=== PATIENT | male | born 1970 | race Caucasian/White ===

== ENCOUNTER 2021-03-28 09:50 | Outpatient (REF) | payer OTHER, SELFPAY ==
[2021-03-28 10:21] LABS: MANUAL DIFF FLAG NO
[2021-03-28 10:33] LABS: Basophils Percent Auto 0.6 % (0-2); Eosinophils Absolute Auto 0.3 X10*3/uL (0.0-0.4); Eosinophils Percent Auto 4.6 % (0-4); Hemoglobin 15.1 g/dl (14.0-18.0); Imm Gran Abs Auto 0.02 X10*3/uL (0.00-0.03); Imm Gran Pct Auto 0.4 % (0.0-0.4); Lymphocytes Absolute Auto 1.7 X10*3/uL (1.2-4.9); Lymphocytes Percent Auto 31.4 % (20-40); Mean Corpuscular HGB Conc 32.8 g/dl (31.0-36.0); Mean Corpuscular Hemoglobin 30.6 pg (27.0-33.0); Mean Corpuscular Volume 93.3 fL (80-98); Mean Platelet Volume 9.1 fL (9.4-12.4); Monocytes Absolute Auto 0.5 X10*3/uL (0.1-1.2); Monocytes Percent Auto 9.4 % (2-11); Neutrophils Absolute Auto 2.9 X10*3/uL (2.0-8.3); Neutrophils Percent Auto 53.6 % (45-73); Platelet Count 224 X10*3/uL (160-400); Red Blood Count 4.93 X10*6/uL (4.60-5.80); Red Cell Distribution Width 14.2 % (11.0-16.0); White Blood Count 5.4 X10*3/uL (4.8-10.8)
[2021-03-28 10:58] LABS: Alanine Aminotransferase 14 U/L (0-40); Albumin Level 4.3 g/dL (3.5-5.0); Alkaline Phosphatase 45 U/L (39-117); Anion Gap 10 (12-20); Aspartate Amino Transferase 14 U/L (5-37); Bilirubin Total 0.6 mg/dL (0.0-1.0); Blood Urea Nitrogen 12 mg/dL (9-16); Calcium 9.7 mg/dL (8.4-10.2); Carbon Dioxide 27 mmol/L (22-29); Chloride 108 mmol/L (96-108); Cholesterol 178 mg/dL; Estimated Glomerular Filt Rate > 60; Glucose Random 95 mg/dL (60-115); HDL Cholesterol 58 mg/dL; Potassium 4.1 mmol/L (3.3-5.1); Sodium 141 mmol/L (135-145); Total Protein 6.6 g/dL (6.5-8.0)
[2021-03-28 11:11] LABS: LDL Cholesterol Calculated 115 mg/dl; Triglycerides 29 mg/dL
[2021-03-28 11:18] LABS: TSH reflex Free T4 1.44 uIU/mL (0.32-4.0)
== END 2021-03-28 09:51 | disposition home or self-care (01) ==
LOC: HO.LAB 09:50
PROVIDERS: PCP Internal Medicine; Visit Provider Internal Medicine
DX: Z00.00 Encounter for general adult medical examination without abnormal findings (principal); Z13.31 Encounter for screening for depression; F41.8 Other specified anxiety disorders; Z72.0 Tobacco use
CPT/HCPCS: 36415; 80053; 80061; 84443; 85025

== ENCOUNTER 2022-03-16 09:18 | Outpatient (REF) | payer OTHER, SELFPAY ==
[2022-03-16 09:41] LABS: MANUAL DIFF FLAG NO
[2022-03-16 10:32] LABS: Basophils Percent Auto 0.4 % (0-2); Eosinophils Absolute Auto 0.2 X10*3/uL (0.0-0.4); Eosinophils Percent Auto 4.2 % (0-4); Hematocrit 43.6 % (42.0-52.0); Hemoglobin 14.5 g/dl (14.0-18.0); Imm Gran Abs Auto 0.03 X10*3/uL (0.00-0.03); Imm Gran Pct Auto 0.5 % (0.0-0.4); Lymphocytes Absolute Auto 1.6 X10*3/uL (1.2-4.9); Lymphocytes Percent Auto 29.1 % (20-40); Mean Corpuscular HGB Conc 33.3 g/dl (31.0-36.0); Mean Corpuscular Hemoglobin 31.9 pg (27.0-33.0); Mean Platelet Volume 9.1 fL (9.4-12.4); Monocytes Absolute Auto 0.5 X10*3/uL (0.1-1.2); Monocytes Percent Auto 9.9 % (2-11); Neutrophils Absolute Auto 3.1 x10*3/uL (2.0-8.3); Neutrophils Percent Auto 55.9 % (45-73); Platelet Count 219 X10*3/uL (160-400); Red Blood Count 4.54 X10*6/uL (4.60-5.80); Red Cell Distribution Width 13.9 % (11.0-16.0); White Blood Count 5.5 X10*3/uL (4.8-10.8)
[2022-03-16 11:02] LABS: Alanine Aminotransferase 16 U/L (0-40); Albumin Level 4.2 g/dL (3.5-5.0); Alkaline Phosphatase 41 U/L (39-117); Anion Gap 13 (12-20); Aspartate Amino Transferase 14 U/L (5-37); Bilirubin Total 0.6 mg/dL (0.0-1.0); Blood Urea Nitrogen 13 mg/dL (9-16); Carbon Dioxide 25 mmol/L (22-29); Chloride 107 mmol/L (96-108); Cholesterol 169 mg/dL; Estimated Glomerular Filt Rate > 60; Glucose Random 85 mg/dL (60-115); HDL Cholesterol 65 mg/dL; LDL Cholesterol Calculated 99 mg/dl; Potassium 4.1 mmol/L (3.3-5.1); Sodium 141 mmol/L (135-145); Total Protein 6.4 g/dL (6.5-8.0); Triglycerides 26 mg/dL
== END 2022-03-16 09:19 | disposition home or self-care (01) ==
LOC: HO.LAB 09:18
PROVIDERS: PCP Internal Medicine; Visit Provider Internal Medicine
DX: Z00.00 Encounter for general adult medical examination without abnormal findings (principal); Z12.5 Encounter for screening for malignant neoplasm of prostate; F41.8 Other specified anxiety disorders; K59.00 Constipation, unspecified; F17.200 Nicotine dependence, unspecified, uncomplicated
CPT/HCPCS: 36415; 80053; 80061; 84153; 85025

== ENCOUNTER 2023-04-02 10:21 | Outpatient (REF) | payer OTHER, SELFPAY ==
[2023-04-02 10:43] LABS: MANUAL DIFF FLAG NO
[2023-04-02 11:52] LABS: Basophils Percent Auto 0.7 % (0-2); Eosinophils Absolute Auto 0.2 X10*3/uL (0.0-0.4); Eosinophils Percent Auto 3.3 % (0-4); Hematocrit 45.9 % (42.0-52.0); Hemoglobin 15.2 g/dl (14.0-18.0); Imm Gran Abs Auto 0.05 X10*3/uL (0.00-0.03); Imm Gran Pct Auto 0.9 % (0.0-0.4); Lymphocytes Absolute Auto 1.4 X10*3/uL (1.2-4.9); Mean Corpuscular HGB Conc 33.1 g/dl (31.0-36.0); Mean Corpuscular Hemoglobin 31.7 pg (27.0-33.0); Mean Corpuscular Volume 95.8 fL (80.0-98.0); Mean Platelet Volume 9.4 fL (9.4-12.4); Monocytes Absolute Auto 0.4 X10*3/uL (0.1-1.2); Monocytes Percent Auto 7.3 % (2-11); Neutrophils Absolute Auto 3.6 x10*3/uL (2.0-8.3); Neutrophils Percent Auto 62.8 % (45-73); Platelet Count 234 X10*3/uL (160-400); Red Blood Count 4.79 X10*6/uL (4.60-5.80); Red Cell Distribution Width 13.7 % (11.0-16.0); White Blood Count 5.8 X10*3/uL (4.8-10.8)
[2023-04-02 12:43] LABS: Alanine Aminotransferase 17 U/L (0-40); Albumin Level 4.3 g/dL (3.5-5.0); Alkaline Phosphatase 41 U/L (39-117); Anion Gap 9 (12-20); Aspartate Amino Transferase 14 U/L (5-37); Bilirubin Total 0.6 mg/dL (0.0-1.0); Blood Urea Nitrogen 10 mg/dL (9-16); Calcium 9.6 mg/dL (8.4-10.2); Carbon Dioxide 29 mmol/L (22-29); Chloride 108 mmol/L (96-108); Cholesterol 181 mg/dL; Estimated Glomerular Filt Rate > 60; Glucose Random 88 mg/dL (60-115); HDL Cholesterol 61 mg/dL; LDL Cholesterol Calculated 112 mg/dl; Potassium 4.2 mmol/L (3.3-5.1); Sodium 142 mmol/L (135-145); Total Protein 6.7 g/dL (6.5-8.0); Triglycerides 44 mg/dL
[2023-04-02 12:47] LABS: Prostate Specific Antigen Scr 1.61 ng/mL (<0.05-4.0)
[2023-04-02 12:49] LABS: Thyroid Stimulating Hormone 1.27 uIU/mL (0.32-4.0)
== END 2023-04-02 10:22 | disposition home or self-care (01) ==
LOC: HO.LAB 10:21
PROVIDERS: PCP Internal Medicine; Visit Provider Internal Medicine
DX: Z00.01 Encounter for general adult medical examination with abnormal findings (principal); Z12.5 Encounter for screening for malignant neoplasm of prostate; R53.83 Other fatigue; R35.1 Nocturia; M54.50 Low back pain, unspecified; I10 Essential (primary) hypertension; F17.200 Nicotine dependence, unspecified, uncomplicated
CPT/HCPCS: 36415; 80053; 80061; 84153; 84443; 85025

== ENCOUNTER 2024-04-21 10:15 | Outpatient (REF) | payer OTHER, SELFPAY ==
[2024-04-21 10:28] LABS: MANUAL DIFF FLAG NO
[2024-04-21 11:09] LABS: Basophils Percent Auto 0.4 % (0-2); Eosinophils Absolute Auto 0.2 X10*3/uL (0.0-0.4); Eosinophils Percent Auto 3.6 % (0-4); Hematocrit 48.8 % (42.0-52.0); Hemoglobin 16.2 g/dl (14.0-18.0); Imm Gran Abs Auto 0.05 X10*3/uL (0.00-0.03); Imm Gran Pct Auto 0.9 % (0.0-0.4); Lymphocytes Absolute Auto 1.5 X10*3/uL (1.2-4.9); Lymphocytes Percent Auto 27.8 % (20-40); Mean Corpuscular HGB Conc 33.2 g/dl (31.0-36.0); Mean Corpuscular Hemoglobin 30.7 pg (27.0-33.0); Mean Corpuscular Volume 92.6 fL (80.0-98.0); Monocytes Absolute Auto 0.6 X10*3/uL (0.1-1.2); Monocytes Percent Auto 10.3 % (2-11); Neutrophils Absolute Auto 3.2 x10*3/uL (2.0-8.3); Platelet Count 251 X10*3/uL (160-400); Red Blood Count 5.27 X10*6/uL (4.60-5.80); Red Cell Distribution Width 14.1 % (11.0-16.0); White Blood Count 5.5 X10*3/uL (4.8-10.8)
[2024-04-21 11:52] LABS: Alanine Aminotransferase 20 U/L (0-40); Albumin Level 4.5 g/dL (3.5-5.0); Alkaline Phosphatase 49 U/L (39-117); Anion Gap 12 (12-20); Aspartate Amino Transferase 16 U/L (5-37); Bilirubin Total 0.4 mg/dL (0.0-1.0); Blood Urea Nitrogen 14 mg/dL (9-16); Calcium 9.8 mg/dL (8.4-10.2); Carbon Dioxide 26 mmol/L (22-29); Chloride 109 mmol/L (96-108); Cholesterol 225 mg/dL (<200); Estimated Glomerular Filt Rate > 60; Glucose Random 92 mg/dL (60-115); HDL Cholesterol 64 mg/dL (>40); LDL Cholesterol Calculated 153 mg/dL (<100); Sodium 143 mmol/L (135-145); Total Protein 7.1 g/dL (6.5-8.0); Triglycerides 43 mg/dL (<150)
[2024-04-21 12:11] LABS: Prostate Specific Antigen Scr 1.99 ng/mL (<0.05-4.0)
== END 2024-04-21 10:16 | disposition home or self-care (01) ==
LOC: HO.LAB 10:15
PROVIDERS: PCP Internal Medicine; Visit Provider Internal Medicine
DX: Z00.00 Encounter for general adult medical examination without abnormal findings (principal); F41.8 Other specified anxiety disorders; I83.813 Varicose veins of bilateral lower extremities with pain; N40.0 Benign prostatic hyperplasia without lower urinary tract symptoms; Z72.0 Tobacco use
CPT/HCPCS: 36415; 80053; 80061; 84153; 85025

== ENCOUNTER 2024-07-03 09:21 | Outpatient (AMB) | payer OTHER, SELFPAY ==
--- NOTE | 2024-07-03 09:24 | MHC.OFFVIS ---
Intake Visit Reasons: Routine - Referral from Intake Note: New Patient presents for VV with pain. Patient stands over 8 hours a day at his job. Patient has swelling and cramping as well . Accompanied by: Self / Same As Patient Allergies shellfish derived [SHELLFISH DERIVED] Allergy (Severe, Verified 07/03/24 09:28) THROAT CLOSES, EYES SHUT animal dander Allergy (Unknown, Verified 07/03/24 09:) NASAL CONGESTION mold Allergy (Unknown, Verified 07/03/24:) CONGESTION pollen extracts [POLLEN] Allergy (Unknown, Verified 07/03/24 09:) NASAL CONGESTION ENVIROMENTAL Allergy (Unknown, Uncoded 05/27/20 18:55) NASAL CONGESTION HPI HPI Routine - Referral from : Details: Pleasant 54-year-old gentleman patient presents for painful varicose veins. Complaints include pain over varicosities, swelling of lower extremities, cramping, fatigue, and heaviness of the lower extremities. It has been affecting there daily activities including walking and working in [employer]. It is noted more so in right leg. Patient denies any previous venous surgery or injections. Patient denies any history of DVT/ PE. Patient denies any history of phlebitis. Trial of compression includes - [id number] They now present for vascular evaluation regarding their varicose veins. [facility] Medical History Personal history of nicotine dependence Hyperplastic colon polyp (~2019) Surgical History History of right inguinal hernia repair History of colonoscopy Review of Systems Const Reports as per HPI ENT Reports no additional complaints Card Denies chest pain, Denies chest pain at rest and Denies chest pain with activity Resp Denies chest congestion and Denies cough GI Reports no additional complaints Musc Details: pain over varicosities, aching of lower extremities, swelling, cramping, heaviness and tiredness, itching Denies abnormal gait Skin/Breast Reports pruritus and Denies wounds Neuro Reports no additional complaints and Denies abnormal gait Psych Denies no additional complaints Physical Exam Const General: cooperative, healthy appearing and comfortable Orientation/consciousness: oriented to person, oriented to place and oriented to time Neck Carotids: no bruits Chest Chest palpation & inspection: normal inspection of the chest and normal palpation of entire chest wall Resp Effort & Inspection: normal respiratory effort and able to speak in complete sentences Cardio Rate: regular rate Heart sounds: S1 normal heart sound present and S2 normal heart sound present Peripheral pulses: Peripheral pulses 2+ throughout GI Inspection: Yes normal to inspection Skin Other: +2 edema, large rope-like varicosities greater than 4 mm bilateral calf CEAP Classification C4 - skin color changes Ep - Etiology Primary As - superficial veins P - reflux General skin exam: dry skin Neuro General: oriented to person, oriented to place and oriented to time Extrem Right lower extremity: full ROM, normal capillary refill and edema Left lower extremity: full ROM, normal capillary refill and edema Psych Mental Status: mental status grossly normal Assessment & Plan Assessment & Plan (1) Varicose veins of right lower extremity with inflammation: Code(s): I83.11 - Varicose veins of right lower extremity with inflammation Category: Medical Plan: In short, the patient has evidence of venous insufficiency. I have discussed the pathophysiology with the patient. In addition I have provided informational material regarding venous disease to the patient. We have discussed conservative measures including compression, elevation, and exercise. I have also provided a handout regarding appropriate use of compression stockings and where to purchase good compression stockings as well. I have taken the liberty of ordering venous insufficiency testing with the patient. They will follow up with me after testing. The patient had an opportunity to ask questions regarding the treatment plan. All questions were answered. Imaging studies, laboratory studies and physical exam results were discussed and reviewed in detail. No major barriers to understanding were identified. The patient expressed understanding and agreement with the above treatment plan. The patient is aware they should contact our office by phone for worsening of the current condition or the appearance of new symptoms. Thank you for allowing me to participate in the vascular care of this patient. If you have any questions or concerns regarding the treatment for the above condition please do not hesitate to contact me. The office telephone contact is [phone]. This note is constructed using voice recognition software. While every effort has been made to ensure accuracy, community youth secretary errors may have been included. Thank you for allowing me to participate in the care of your patient. Yours sincerely, Yrn Melendez MD, FACS, R.P.V.I. Orders: Orders US venous duplex LE BI 1 Week I83.11 - Varicose veins of right lower extremity with inflammation Coding Level of Care Code New Pt Level 4 (96703) Diagnoses Varicose veins of right lower extremity with inflammation I83.11
== END 2024-07-03 09:51 | disposition home or self-care (01) ==
PROVIDERS: PCP Internal Medicine; Visit Provider Surgery Vascular Surgery
DX: I83.11 Varicose veins of right lower extremity with inflammation (principal)
CPT/HCPCS: 99204

== ENCOUNTER → 2024-07-03 09:21 | Outpatient (BNVA) | payer OTHER, SELFPAY | PROVIDERS: PCP Internal Medicine; Visit Provider Surgery Vascular Surgery | DX: I83.11 Varicose veins of right lower extremity with inflammation (principal); I83.811 Varicose veins of right lower extremity with pain | CPT/HCPCS: 99202 ==

== ENCOUNTER 2024-07-07 08:45 | Outpatient (REF) | payer OTHER, SELFPAY ==
[2024-07-07 17:15] LABS: Urine Cytology See Pathology rpt
== END 2024-07-07 08:46 | disposition home or self-care (01) ==
LOC: HO.LAB 08:45
PROVIDERS: PCP Internal Medicine; Visit Provider Urology
DX: R35.0 Frequency of micturition (principal); Z87.891 Personal history of nicotine dependence; N40.0 Benign prostatic hyperplasia without lower urinary tract symptoms; Z13.9 Encounter for screening, unspecified
CPT/HCPCS: 81003; 88112; 99202

== ENCOUNTER 2024-07-07 08:45 | Outpatient (AMB) | payer OTHER, SELFPAY ==
--- NOTE | 2024-07-07 08:59 | MHC.OFFVIS ---
Intake Visit Reasons: urinary frequency Intake Note: Patient is present for URINARY FREQUENCY Urology Medication:NONE Antibiotic Allergy:NONE Blood Thinner:NONE Stock Holder Required: No Allergies sertraline Allergy (Severe, Verified 07/07/24 08:59) Unknown shellfish derived [SHELLFISH DERIVED] Allergy (Severe, Verified 07/07/24 08:59) THROAT CLOSES, EYES SHUT animal dander Allergy (Unknown, Verified 07/07/24 08:59) NASAL CONGESTION mold Allergy (Unknown, Verified 07/07/24 08:59) CONGESTION pollen extracts [POLLEN] Allergy (Unknown, Verified 07/07/24 08:59) NASAL CONGESTION ENVIROMENTAL Allergy (Unknown, Uncoded 07/07/24 08:59) NASAL CONGESTION Medication List - Last Reconciled 07/07/24 by Rl Cyr MD buspirone 15 mg PO BID loratadine (Claritin) 10 mg PO DAILY sildenafil 100 mg PO DAILY solifenacin (Vesicare) 10 mg PO DAILY triamcinolone acetonide (Nasacort Allergy) 1 spray intranasal DAILY HPI Comments Details: Jose Carlos is a 54-year-old male who is here for evaluation for lower urinary tract symptoms of urinary frequency. He states that if he is not able to get to the bathroom fast enough he will leak a little bit. Occasional dysuria denies gross hematuria. Comorbidity nicotine dependency. I have advised to limit caffeine intake. Labs reviewed-04/21/2024-PSA 1.99 ng/mL. Discussed further evaluation with renal bladder ultrasound and we will trial VESIcare. [facility] Medical History Personal history of nicotine dependence Hyperplastic colon polyp (~2019) Surgical History History of right inguinal hernia repair History of colonoscopy Review of Systems Const All systems reviewed & are unremarkable except as noted in HPI and below Reports no additional complaints Eyes Reports no additional complaints ENT Reports no additional complaints Card Reports no additional complaints Resp Reports no additional complaints GI Reports no additional complaints Reports as per HPI Musc Reports no additional complaints Skin/Breast Reports system reviewed and no additional complaints, except as documented Neuro Reports no additional complaints Psych Reports no additional complaints Endo Reports no additional complaints Karan/Lymph Reports no additional complaints Aller/Immun Reports no additional complaints Physical Exam Const General: healthy appearing, no acute distress and well developed Orientation/consciousness: patient oriented x3 HEENT Head: Yes normocephalic and Yes atraumatic Eyes Conjunctivae: conjunctivae normal Neck Neck: Yes normal visual inspection Chest Chest palpation & inspection: normal inspection of the chest Resp Effort & Inspection: normal respiratory effort Cardio Rate: regular rate GI Inspection: Yes normal to inspection Neuro General: patient oriented x3 Extrem General: No pedal edema Psych Appearance: grossly normal Affect: normal affect Results AMB Urinalysis, Automated UA Leukoctes 0 Norma/uL Last Edit by ANASTACIA Ca on 07/07/24 09:11 UA Nitrite Negative Last Edit by To Steele CCM on 07/07/24 09:11 UA Urobilinogen 1 mg/dL Last Edit by ANASTACIA Ca on 07/07/24 09:11 UA Protein 15 mg/dL Last Edit by ANASTACIA Ca on 07/07/24 09:11 UA pH 6.0 Last Edit by To Steele CCM on 07/07/24 09:11 UA Blood 0 Renzo/uL Last Edit by To Steele CCM on 07/07/24 09:11 UA Specific [place] 1.020 Last Edit by ANASTACIA Ca on 07/07/24 09:11 UA Ketone Positive Last Edit by To Steele CCM on 07/07/24 09:11 UA Bilirubin 0 mg/dL Last Edit by ANASTACIA Ca on 07/07/24 09:11 UA Glucose 0 mg/dL Last Edit by To Steele CCM on 07/07/24 09:11 Results Reviewed Results Reviewed: Laboratory Last Values Urine pH (Auto) 6.0 07/07/24 09:10 Specific [place] (Auto) 1.020 07/07/24 09:10 Urine Protein (Auto) 15 mg/dL 07/07/24 09:10 Glucose (UA)(Auto) 0 mg/dL 07/07/24 09:10 Urine Ketones (Auto) Positive 07/07/24 09:10 Urine Blood (Auto) 0 Renzo/uL 07/07/24 09:10 Urine Nitrite (Auto) Negative 07/07/24 09:10 Urine Bilirubin (Auto) 0 mg/dL 07/07/24 09:10 Urine Urobilinogen (Auto) 1 mg/dL 07/07/24 09:10 Leukocyte Esterase (Auto) 0 Norma/uL 07/07/24 09:10 Assessment & Plan Assessment & Plan (1) Urinary frequency: Code(s): R35.0 - Frequency of micturition Category: Medical (2) Personal history of nicotine dependence: Comment: (former smoker, onset 20yo, 1ppd, quit __) Code(s): Z87.891 - Personal history of nicotine dependence Category: Medical (3) BPH (benign prostatic hyperplasia): Code(s): N40.0 - Benign prostatic hyperplasia without lower urinary tract symptoms Category: Medical Plan Lower urinary tract symptoms of urinary frequency. Comorbidity nicotine dependency. I have advised to limit caffeine intake. Labs reviewed-04/21/2024-PSA 1.99 ng/mL. Discussed further evaluation with renal bladder ultrasound and we will trial VESIcare. Urine for cytology. Orders: Orders AMB Urinalysis Automated 07/07/24 Z13.9 - Encounter for screening, unspecified US retroperitoneal comp 07/07/24 R35.0 - Frequency of micturition Urine Cytology 07/07/24 R35.0 - Frequency of micturition Medications: New solifenacin (Vesicare) 10 mg PO DAILY 30 tabs 3RF Patient Instructions: The patient had an opportunity to ask questions regarding treatment plan. The patient expressed understanding and agreement with the above treatment plan. The patient is aware they should contact our office by phone for worsening of their current condition or the appearance of new symptoms. Compliance is encouraged with any medications and followup testing that is ordered. It is a privilege to be allowed the opportunity to participate in the urologic care of your patient. If you have any questions or concerns regarding treatment for the above conditions please do not hesitate to contact me. The office telephone contact is [phone]. This note is constructed in part using voice recognition software. While every effort has been made to ensure accuracy fabrication and assembly supervisor errors may have been included. Yours sincerely, Rl Cyr MD Coding Level of Care Code New Pt Level 4 (37492) Diagnoses Urinary frequency R35.0 Personal history of nicotine dependence Z87.891 BPH (benign prostatic hyperplasia) N40.0
== END 2024-07-07 09:54 | disposition home or self-care (01) ==
PROVIDERS: PCP Internal Medicine; Visit Provider Urology
DX: R35.0 Frequency of micturition (principal); Z87.891 Personal history of nicotine dependence; N40.0 Benign prostatic hyperplasia without lower urinary tract symptoms
CPT/HCPCS: 99204

== ENCOUNTER 2024-07-15 08:07 | Outpatient (REF) | payer OTHER, SELFPAY ==
--- NOTE | ~2024-07-15 | US_ITS ---
EXAMINATION: US LOWER EXTREMITY VENOUS (REFLUX EXAM), BILATERAL CLINICAL INDICATION: Chronic venous insufficiency with lower extremity varicose veins and inflammation COMPARISON: None. TECHNIQUE: Color flow triplex imaging and compression Doppler was performed to evaluate both the deep and the superficial systems bilaterally. To evaluate the superficial system, the examination was performed in the upright position. Color-flow Doppler ultrasound and compression ultrasound were utilized. In addition, maneuvers were utilized to demonstrate reflux. FINDINGS: 1. DEEP VENOUS ULTRASOUND OF THE RIGHT LOWER EXTREMITY: Common Femoral Vein: Compressible, normal respiratory variation and augmented flow. Femoral Vein: Compressible, normal color flow and augmentation. Popliteal Vein: Compressible, normal augmentation. Deep Reflux: There is no evidence of reflux in the deep system in either the common femoral vein, superficial femoral or the popliteal vein. There is no evidence of a Bedoya's cyst. 2. SUPERFICIAL ULTRASOUND WITH DOPPLER OF RIGHT LOWER EXTREMITY: GREAT SAPHENOUS VEIN: Saphenofemoral Junction: 0.5 cm; Reflux: 0 ms Proximal Thigh: 0.5 cm; Reflux: 3304 ms Mid Thigh: 0.5 cm; Reflux: 3108 ms Above Knee: 0.5 cm; Reflux: 3192 ms At Knee: 0.5 cm; Reflux: 1204 ms Below Knee: 0.5 cm; Reflux: 2368 ms Mid Calf: 0.3 cm; Reflux: 0 ms Ankle: 0.4 cm; Reflux: 0 ms DUPLICATED MEDIAL GREAT SAPHENOUS VEIN: Diameter: 0.3 cm Reflux: No DUPLICATED LATERAL GREAT SAPHENOUS VEIN: Diameter: None imaged Reflux: NA SMALL SAPHENOUS VEIN: Saphenopopliteal Junction: 0.3 cm; Reflux: 0 ms Mid: 0.4 cm; Reflux: 1436 ms Distal: 0.3 cm; Reflux: 0 ms VEIN OF GIACOMINI: Size: NA Reflux: NA PERFORATORS: Location: Distal calf Size: 0.5 cm Reflux: 1844 ms VARICOSITIES: Location: Posterior distal calf off the small saphenous vein, mid and distal medial calf off the great saphenous vein Size: 0.3 to 0.5 cm Reflux: 2148 ms 3. DEEP VENOUS ULTRASOUND OF THE LEFT LOWER EXTREMITY: Common Femoral Vein: Compressible, normal respiratory variation and augmented flow. Femoral Vein: Compressible, normal color flow and augmentation. Popliteal Vein: Compressible, normal augmentation. Deep Reflux: There is no evidence of reflux in the deep system in either the common femoral vein, superficial femoral or the popliteal vein. There is no evidence of a Bedoya's cyst. 4. SUPERFICIAL ULTRASOUND WITH DOPPLER OF LEFT LOWER EXTREMITY: GREAT SAPHENOUS VEIN: Saphenofemoral Junction: 0.8 cm; Reflux: 0 ms Proximal Thigh: 0.5 cm; Reflux: 1908 ms Mid Thigh: 0.6 cm; Reflux: 2628 ms Above Knee: 1.0 cm; Reflux: 2732 ms At Knee: 0.7 cm; Reflux: 2936 ms Below Knee: 0.6 cm; Reflux: 2820 ms Mid Calf: 0.5 cm; Reflux: 1268 ms Ankle: 0.3 cm; Reflux: 1240 ms DUPLICATED MEDIAL GREAT SAPHENOUS VEIN: Diameter: 0.3 cm Reflux: None DUPLICATED LATERAL GREAT SAPHENOUS VEIN: Diameter: None imaged Reflux: NA SMALL SAPHENOUS VEIN: Saphenopopliteal Junction: 0.3 cm; Reflux: 0 ms Mid: 0.2 cm; Reflux: 0 ms Distal: 0.2 cm; Reflux: 2032 ms VEIN OF GIACOMINI: Size: NA Reflux: NA PERFORATORS: Location: Posterior calf to the small saphenous vein, proximal and mid thigh to the great saphenous vein, proximal and mid calf into varicose veins Size: Ranging from 0.1 to 0.5 cm Reflux: Ranging from 1444 ms to 3056 ms VARICOSITIES: Location: Posterior distal calf off the small saphenous vein, mid thigh off the great saphenous vein, mid calf Size: Ranging from 0.3 to 0.4 cm Reflux: Region from 632 ms to 2112 ms US/US venous duplex LE BI IMPRESSION: 1. Right: Significant venous insufficiency and reflux throughout the great saphenous vein with multiple varicosities as described above. 2. Left: Significant venous insufficiency and reflux throughout the great saphenous vein with multiple varicosities as described above. Electronically signed by: Guanakito Regalado MD 08/06/2024 12:42 PM [facility]
== END 2024-07-15 08:08 | disposition home or self-care (01) ==
LOC: HO.US 08:07
PROVIDERS: PCP Internal Medicine; Visit Provider Surgery Vascular Surgery
DX: I83.11 Varicose veins of right lower extremity with inflammation (principal)
CPT/HCPCS: 93970

== ENCOUNTER 2024-08-26 09:28 | Outpatient (AMB) | payer OTHER, SELFPAY ==
--- NOTE | 2024-08-26 09:50 | MHC.OFFVIS ---
Vital Signs 08/26/24 09:54 Height 6 ft 2 in Weight 200 lb BMI 25.7 Intake Visit Reasons: follow up s/p 07/15/24 Intake Note: followup 07/15/24, bilateral LE VV, pt states they are about the same level of pain Accompanied by: Self / Same As Patient Allergies sertraline Allergy (Severe, Verified 08/26/24 09:55) Unknown shellfish derived [SHELLFISH DERIVED] Allergy (Severe, Verified 08/26/24 09:55) THROAT CLOSES, EYES SHUT animal dander Allergy (Unknown, Verified 08/26/24 09:55) NASAL CONGESTION mold Allergy (Unknown, Verified 08/26/24 09:55) CONGESTION pollen extracts [POLLEN] Allergy (Unknown, Verified 08/26/24 09:55) NASAL CONGESTION ENVIROMENTAL Allergy (Unknown, Uncoded 08/26/24 09:55) NASAL CONGESTION HPI HPI follow up s/p 07/15/24: Details: Very pleasant 54-year-old gentleman presents for follow-up regarding venous insufficiency. Continues to have swollen painful lower extremities. It appears to be left more so than right. 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 He now presents for follow-up with venous insufficiency testing. Of note he has had a trial of compression with minimal relief. [facility] Medical History Personal history of nicotine dependence Hyperplastic colon polyp (~2019) Surgical History History of right inguinal hernia repair History of colonoscopy Social History (Updated 08/26/24 @ 09:57 by TAL Awan) Tobacco use type: Cigarette Cigarettes Per Day: 20 Review of Systems Const Reports as per HPI ENT Reports no additional complaints Card Denies chest pain, Denies chest pain at rest and Denies chest pain with activity Resp Denies chest congestion and Denies cough GI Reports no additional complaints Musc Details: pain over varicosities, aching of lower extremities, swelling, cramping, heaviness and tiredness, itching Denies abnormal gait Skin/Breast Reports pruritus and Denies wounds Neuro Reports no additional complaints and Denies abnormal gait Psych Denies no additional complaints Physical Exam Vital Signs: BMI result Body Mass Index 25.7 Const General: cooperative, healthy appearing and comfortable Orientation/consciousness: oriented to person, oriented to place and oriented to time Neck Carotids: no bruits Chest Chest palpation & inspection: normal inspection of the chest and normal palpation of entire chest wall Resp Effort & Inspection: normal respiratory effort and able to speak in complete sentences Cardio Rate: regular rate Heart sounds: S1 normal heart sound present and S2 normal heart sound present Peripheral pulses: Peripheral pulses 2+ throughout GI Inspection: Yes normal to inspection Skin Other: +2 edema, large rope-like varicosities greater than 4 mm bilateral calf CEAP Classification C4 - skin color changes Ep - Etiology Primary As - superficial veins P - reflux General skin exam: dry skin Neuro General: oriented to person, oriented to place and oriented to time Extrem Right lower extremity: full ROM, normal capillary refill and edema Left lower extremity: full ROM, normal capillary refill and edema Psych Mental Status: mental status grossly normal Results Reviewed Results Reviewed: Brief summary of venous insufficiency testing is as follows: right great saphenous vein: Positive right small saphenous vein: negative right accessory vein: none present left great saphenous vein: Positive left small saphenous vein: negative left accessory vein: none present Please note there is no evidence of any venous aneurysms or significant tortuosity Assessment & Plan Assessment & Plan (1) Varicose veins of left lower extremity with inflammation: Code(s): I83.12 - Varicose veins of left lower extremity with inflammation Category: Medical Plan: This patient has varicose veins with inflammation. They continue to be a source of discomfort for the patient. The patient has tried conservative treatment with compression, leg elevation and exercise program for over 3 months time. They have been compliant with all treatment. This has provided minimal relief for the patient. I do not anticipate this course of treatment will alter the underlying etiology. The patient has been scheduled for lower extremity venous treatment inclusive of --- left great saphenous vein radiofrequency ablation. Risks, benefits, and complications of this procedure has been discussed in detail with the patient including but not limited to bleeding, infection, and the development of a DVT. The patient has demonstrated a clear understanding and has consented. We will schedule the patient as soon as possible. Thank you for allowing us to participate in this patient's care. If there are any questions or concerns please do not hesitate to contact us. Coding Level of Care Code Est Pt Level 4 (37174) Diagnoses Varicose veins of left lower extremity with inflammation I83.12
[2024-08-26 09:54] VITALS: BMI 25.7
== END 2024-08-26 10:14 | disposition home or self-care (01) ==
PROVIDERS: PCP Internal Medicine; Visit Provider Surgery Vascular Surgery
DX: I83.12 Varicose veins of left lower extremity with inflammation (principal)
CPT/HCPCS: 99214

== ENCOUNTER → 2024-08-26 09:28 | Outpatient (BNVA) | payer OTHER, SELFPAY | PROVIDERS: PCP Internal Medicine; Visit Provider Surgery Vascular Surgery | DX: I83.12 Varicose veins of left lower extremity with inflammation (principal) | CPT/HCPCS: 99212 ==

== ENCOUNTER 2024-09-25 09:39 | Outpatient (REF) | payer OTHER, SELFPAY ==
--- NOTE | ~2024-09-25 | US_ITS ---
CLINICAL HISTORY: R35.0 - Frequency of micturition US Renal Comparison: None Findings: Right kidney normal size and echotexture, 11.4 cm length. Left kidney normal size and echotexture, 11.4 cm length. No hydronephrosis of either kidney. Normal color Doppler. Urinary bladder is unremarkable. Prevoid volume 258 mL. Postvoid volume 41 mL. Bilateral ureteral jets are visualized. IMPRESSION: 1. Normal kidneys. This document has been electronically signed by: Minh Capps MD on 09/26/2024 07:15:00
== END 2024-09-25 09:40 | disposition home or self-care (01) ==
LOC: HO.US 09:39
PROVIDERS: PCP Internal Medicine; Visit Provider Urology
DX: R35.0 Frequency of micturition (principal)
CPT/HCPCS: 76770

== ENCOUNTER → 2024-09-25 09:41 | Outpatient (BNV) | payer OTHER, SELFPAY | PROVIDERS: PCP Internal Medicine; Visit Provider Specialist | DX: R35.0 Frequency of micturition (principal) | CPT/HCPCS: 76770 ==

== ENCOUNTER 2024-09-29 10:03 | Outpatient (AMB) | payer OTHER, SELFPAY ==
--- NOTE | 2024-09-29 10:06 | A.OFFVIS_ITS ---
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: No Allergies sertraline Allergy (Severe, Verified 09/29/24 10:09) Unknown shellfish derived [SHELLFISH DERIVED] Allergy (Severe, Verified 09/29/24 10:09) THROAT CLOSES, EYES SHUT animal dander Allergy (Unknown, Verified 09/29/24 10:09) NASAL CONGESTION mold Allergy (Unknown, Verified 09/29/24 10:09) CONGESTION pollen extracts [POLLEN] Allergy (Unknown, Verified 09/29/24 10:09) NASAL CONGESTION ENVIROMENTAL Allergy (Unknown, Uncoded 09/29/24 10:09) NASAL CONGESTION Medication List - Last Reconciled 09/29/24 by Rl Cyr MD buspirone 15 mg PO BID loratadine (Claritin) 10 mg PO DAILY sildenafil 100 mg PO DAILY solifenacin (Vesicare) 10 mg PO DAILY triamcinolone acetonide (Nasacort Allergy) 1 spray intranasal DAILY HPI Comments Details: 09/29/24--Jose Carlos is here for follow-up. History of Nicotine dependency. He states that he is doing very well on the VESIcare 10 mg daily. He is not looking for the bathroom all the time he feels more ?normal?. He has also been monitoring his caffeine intake. I have reviewed renal ultrasound is within normal limits. Urine cytology [id number]- for malignant cells. Follow-up in 6 months. 07/07/24--Jose Carlos is a 54-year-old male who is here for evaluation for lower urinary tract symptoms of urinary frequency. He states that if he is not able to get to the bathroom fast enough he will leak a little bit. Occasional dysuria denies gross hematuria. Comorbidity nicotine dependency. I have advised to limit caffeine intake. Labs reviewed-04/21/2024-PSA 1.99 ng/mL. Discussed further evaluation with renal bladder ultrasound and we will trial VESIcare. [facility] Medical History Personal history of nicotine dependence Hyperplastic colon polyp (~2019) Surgical History History of right inguinal hernia repair History of colonoscopy Social History Tobacco use type: Cigarette Cigarettes Per Day: 20 Review of Systems Const All systems reviewed & are unremarkable except as noted in HPI and below Reports no additional complaints Eyes Reports no additional complaints ENT Reports no additional complaints Card Reports no additional complaints Resp Reports no additional complaints GI Reports no additional complaints Reports as per HPI Musc Reports no additional complaints Skin/Breast Reports system reviewed and no additional complaints, except as documented Neuro Reports no additional complaints Psych Reports no additional complaints Endo Reports no additional complaints Karan/Lymph Reports no additional complaints Aller/Immun Reports no additional complaints Results AMB Urinalysis, Automated UA Leukoctes 0 Norma/uL Last Edit by ANASTACIA Ca on 09/29/24 10:24 UA Nitrite Negative Last Edit by ANASTACIA Ca on 09/29/24 10:24 UA Urobilinogen 0.2 mg/dL Last Edit by ANASTACIA Ca on 09/29/24 10:2 4 UA Protein 0 mg/dL Last Edit by ANASTACIA Ca on 09/29/24 10:24 UA pH 6.5 Last Edit by ANASTACIA Ca on 09/29/24 10:24 UA Blood 0 Renzo/uL Last Edit by ANASTACIA Ca on 09/29/24 10:24 UA Specific [place] 1.015 Last Edit by ANASTACIA Ca on 09/29/24 10: 24 UA Ketone Negative Last Edit by ANASTACIA Ca on 09/29/24 10:24 UA Bilirubin 0 mg/dL Last Edit by ANASTACIA Ca on 09/29/24 10:24 UA Glucose 0 mg/dL Last Edit by ANASTACIA Ca on 09/29/24 10:24 Results Reviewed Results Reviewed: Date of Service: 09/25/24 US Renal Comparison: None Findings: Right kidney normal size and echotexture, 11.4 cm length. Left kidney normal size and echotexture, 11.4 cm length. No hydronephrosis of either kidney. Normal color Doppler. Urinary bladder is unremarkable. Prevoid volume 258 mL. Postvoid volume 41 mL. Bilateral ureteral jets are visualized. IMPRESSION: 1. Normal kidneys. Urine cytology- Collected: 07/07/24 Location: .LAB Received: 07/08/24 Diagnosis Urine: Negative for high-grade urothelial carcinoma. COMMENT: Examination of a monolayer preparation slide shows a hypocellular specimen with occasional benign squamous cells, occasional benign urothelial cells, scattered crystals, and few inflammatory cells. Clinical History Frequency of micturition, increased frequency of urinary Material Received Urine Gross Description Received is 25 cc of clear very dark orange fluid from which a ThinPrep slide is prepared. Assessment & Plan Assessment & Plan (1) Urinary frequency: Code(s): R35.0 - Frequency of micturition Category: Medical (2) Personal history of nicotine dependence: Comment: (former smoker, onset 20yo, 1ppd, quit __) Code(s): Z87.891 - Personal history of nicotine dependence Category: Medical (3) BPH (benign prostatic hyperplasia): Code(s): N40.0 - Benign prostatic hyperplasia without lower urinary tract symptoms Category: Medical Plan Lower urinary tract symptoms of urinary frequency. Comorbidity nicotine dependency. I have advised to limit caffeine intake. Labs reviewed-04/21/2024-PSA 1.99 ng/mL. Cont VESIcare. Orders: Orders AMB Urinalysis Automated Today Z13.9 - Encounter for screening, unspecified Medications: Refilled solifenacin (Vesicare) 10 mg PO DAILY 90 tabs 3RF Patient Instructions: The patient had an opportunity to ask questions regarding treatment plan. The patient expressed understanding and agreement with the above treatment plan. The patient is aware they should contact our office by phone for worsening of their current condition or the appearance of new symptoms. Compliance is encouraged with any medications and followup testing that is ordered. It is a privilege to be allowed the opportunity to participate in the urologic care of your patient. If you have any questions or concerns regarding treatment for the above conditions please do not hesitate to contact me. The office telephone contact is [phone]. This note is constructed in part using voice recognition software. While every effort has been made to ensure accuracy transcription specialist errors may have been included. Yours sincerely, Rl Cyr MD Coding Level of Care Code Est Pt Level 3 (98699) Diagnoses Urinary frequency R35.0 Personal history of nicotine dependence Z87.891 BPH (benign prostatic hyperplasia) N40.0
== END 2024-09-29 10:38 | disposition home or self-care (01) ==
PROVIDERS: PCP Internal Medicine; Visit Provider Urology
DX: R35.0 Frequency of micturition (principal); Z87.891 Personal history of nicotine dependence; N40.0 Benign prostatic hyperplasia without lower urinary tract symptoms; Z13.9 Encounter for screening, unspecified
CPT/HCPCS: 99213

== ENCOUNTER → 2024-09-29 10:03 | Outpatient (BNVA) | payer OTHER, SELFPAY | PROVIDERS: PCP Internal Medicine; Visit Provider Urology | DX: R35.0 Frequency of micturition (principal); N40.0 Benign prostatic hyperplasia without lower urinary tract symptoms; Z87.891 Personal history of nicotine dependence | CPT/HCPCS: 81003; 99212 ==

== ENCOUNTER 2024-10-17 08:07 | Outpatient (AMB) | payer OTHER, SELFPAY ==
--- NOTE | 2024-10-17 08:40 | MHC.OFFVIS ---
Intake Visit Reasons: Left GSV RFA Accompanied by: Self / Same As Patient Allergies sertraline Allergy (Severe, Verified 10/17/24 08:40) Unknown shellfish derived [SHELLFISH DERIVED] Allergy (Severe, Verified 10/17/24 08:40) THROAT CLOSES, EYES SHUT animal dander Allergy (Unknown, Verified 10/17/24 08:40) NASAL CONGESTION mold Allergy (Unknown, Verified 10/17/24 08:40) CONGESTION pollen extracts [POLLEN] Allergy (Unknown, Verified 10/17/24 08:40) NASAL CONGESTION ENVIROMENTAL Allergy (Unknown, Uncoded 09/29/24 10:09) NASAL CONGESTION PFSH Medical History Personal history of nicotine dependence Hyperplastic colon polyp (~2020) Surgical History History of right inguinal hernia repair History of colonoscopy Social History Tobacco use type: Cigarette Cigarettes Per Day: 20 Office Procedures Vascular Office Procedure Details Details: Diagnosis: Varicose veins with inflammation of left leg Procedure: Endovenous radiofrequency ablation of the left great saphenous vein(s) of the lower extremity. Anesthesia: Local infiltration 5 cc, Tumescent 300 cc. Estimated Blood Loss: minimal Specimen: Varicose veins The patient was transferred to the procedure suite and the insufficient saphenous vein was mapped by ultrasound and diagrammed on the overlying skin. The depth and diameter of the vein(s) to be treated was documented. The varicose tributary veins and suitable access sites were identified and mapped as well. The patient was then positioned supine on the procedure table. The affected limb was prepped and draped in the usual sterile fashion. The RF catheter was placed on the sterile field, flushed and wiped down, prepared, and connected by a sterile cable. The patient was placed in supine position and local anesthesia was instilled in the skin overlying the access site. A skin incision was made overlying the identified and mapped great saphenous vein entry site. The vein was accessed using ultrasound guidance and the Seldinger technique, a guide wire was introduced through the needle, which was then exchanged over the guide wire for a 6F sheath, which was secured in place. The guide wire was removed and the sheath was flushed. The RF catheter was placed into the vein through the sheath and preferentially, imaging was used to place the catheter tip just inferior to the superficial epigastric vein to preserve normal physiological flow in that vein. Additionally, it was confirmed by ultrasound guidance that the catheter tip was also placed a minimum of 1.5cm distal to the saphenofemoral junction. After the RF catheter position was verified by ultrasound, tumescent anesthesia was infiltrated, under ultrasound guidance, precisely into the perivenous compartment along the entire length of vein from the entry site to the saphenofemoral junction until a halo of fluid was noted around the vein. The patient was then placed in supine position to further exsanguinate the superficial venous system. After RF catheter position was again confirmed with ultrasound imaging, and under direct external compression along the length of the heating element, RF energy was applied. The vein was segmentally ablated by heating a 8 cm segment and then indexing the catheter forward by 7.5 cm until the treatment length is completed. Device temperature was maintained at 120 plus or minus 5 degrees C with an initial power level of 40W dropping to below 20W for each treatment. Total vein length treated 40 cm Total cycles of RF 6. Repeat ultrasound of the saphenous vein was performed, confirming successful treatment. The catheter and sheath were withdrawn and hemostasis established with direct pressure. After assuring hemostasis, the skin incision over the saphenous vein was closed with a bandage and a compression wrap, and/ or graduated compression stocking was applied from the level of the foot to the most proximal level of the thigh. 70634 - Endovenous RF, 1st Vein All charges added?: Procedure code (CPT) selection complete Assessment & Plan Assessment & Plan (1) Varicose veins of left lower extremity with inflammation: Comment: 10/17/2024 - left great saphenous vein radiofrequency ablation Code(s): I83.12 - Varicose veins of left lower extremity with inflammation Category: Medical Plan: See op note Coding Level of Care Code Procedure Only Diagnoses Varicose veins of left lower extremity with inflammation I83.12 CPT Codes Details - Vascular 1: 32059 - Endovenous RF, 1st Vein ([id number])
== END 2024-10-17 10:20 | disposition home or self-care (01) ==
PROVIDERS: PCP Internal Medicine; Visit Provider Surgery Vascular Surgery
DX: I83.12 Varicose veins of left lower extremity with inflammation (principal)
CPT/HCPCS: 36475

== ENCOUNTER → 2024-10-17 08:07 | Outpatient (BNVA) | payer OTHER, SELFPAY | PROVIDERS: PCP Internal Medicine; Visit Provider Surgery Vascular Surgery | DX: I83.12 Varicose veins of left lower extremity with inflammation (principal) | CPT/HCPCS: 36475; J2003; J2004 ==

== ENCOUNTER 2024-10-28 08:48 | Outpatient (AMB) | payer OTHER, SELFPAY ==
--- NOTE | 2024-10-28 09:00 | MHC.OFFVIS ---
Vital Signs 10/28/24 09:01 Height 6 ft 2 in Weight 200 lb BMI 25.7 Intake Visit Reasons: 2 week follow up Left GSV RFA 10/17/24 Intake Note: 2 week follow up Left GSV RFA 10/17/24, pt states he does have some tenderness over treated area. Pt also states his Right LE is causing pain and discomfort like the Left LE was. Accompanied by: Self / Same As Patient Allergies sertraline Allergy (Severe, Verified 10/28/24 09:04) Unknown shellfish derived [SHELLFISH DERIVED] Allergy (Severe, Verified 10/28/24 09:04) THROAT CLOSES, EYES SHUT animal dander Allergy (Unknown, Verified 10/28/24 09:04) NASAL CONGESTION mold Allergy (Unknown, Verified 10/28/24 09:04) CONGESTION pollen extracts [POLLEN] Allergy (Unknown, Verified 10/28/24 09:04) NASAL CONGESTION ENVIROMENTAL Allergy (Unknown, Uncoded 10/28/24 09:04) NASAL CONGESTION HPI HPI 2 week follow up Left GSV RFA 10/17/24: Details: Very pleasant 54-year-old gentleman presents for follow-up status post left great saphenous vein ablation. Overall reports a good result with the entire procedure. During the procedure he did appreciate some mild discomfort more so in the proximal thigh. Other than that he has done extremely well postprocedure. He is now concerned about his right lower extremity. He is experiencing similar symptoms of pain and discomfort. Compression stockings have provided minimal relief. [facility] Medical History Personal history of nicotine dependence Hyperplastic colon polyp (~2019) Surgical History History of right inguinal hernia repair History of colonoscopy Social History Tobacco use type: Cigarette Cigarettes Per Day: 20 Review of Systems Const Reports as per HPI ENT Reports no additional complaints Card Denies chest pain, Denies chest pain at rest and Denies chest pain with activity Resp Denies chest congestion and Denies cough GI Reports no additional complaints Musc Details: pain over varicosities, aching of lower extremities, swelling, cramping, heaviness and tiredness, itching Denies abnormal gait Skin/Breast Reports pruritus and Denies wounds Neuro Reports no additional complaints and Denies abnormal gait Psych Denies no additional complaints Physical Exam Vital Signs: BMI result Body Mass Index 25.7 Const General: cooperative, healthy appearing and comfortable Orientation/consciousness: oriented to person, oriented to place and oriented to time Neck Carotids: no bruits Chest Chest palpation & inspection: normal inspection of the chest and normal palpation of entire chest wall Resp Effort & Inspection: normal respiratory effort and able to speak in complete sentences Cardio Rate: regular rate Heart sounds: S1 normal heart sound present and S2 normal heart sound present Peripheral pulses: Peripheral pulses 2+ throughout GI Inspection: Yes normal to inspection Skin Other: +2 edema, large rope-like varicosities greater than 4 mm CEAP Classification C4 - skin color changes Ep - Etiology Primary As - superficial veins P - reflux General skin exam: dry skin Neuro General: oriented to person, oriented to place and oriented to time Extrem Right lower extremity: full ROM, normal capillary refill and edema Left lower extremity: full ROM, normal capillary refill and edema Psych Mental Status: mental status grossly normal Results Reviewed Results Reviewed: Brief summary of venous insufficiency testing is as follows: right great saphenous vein: Positive right small saphenous vein: negative right accessory vein: none present left great saphenous vein: Ablated left small saphenous vein: negative left accessory vein: none present Please note there is no evidence of any venous aneurysms or significant tortuosity Assessment & Plan Assessment & Plan (1) Varicose veins of right lower extremity with inflammation: Code(s): I83.11 - Varicose veins of right lower extremity with inflammation Category: Medical Plan: This patient has varicose veins with inflammation. They continue to be a source of discomfort for the patient. The patient has tried conservative treatment with compression, leg elevation and exercise program for over 3 months time. They have been compliant with all treatment. This has provided minimal relief for the patient. I do not anticipate this course of treatment will alter the underlying etiology. The patient has been scheduled for lower extremity venous treatment inclusive of --- right great saphenous vein radiofrequency ablation. Risks, benefits, and complications of this procedure has been discussed in detail with the patient including but not limited to bleeding, infection, and the development of a DVT. The patient has demonstrated a clear understanding and has consented. We will schedule the patient as soon as possible. Thank you for allowing us to participate in this patient's care. If there are any questions or concerns please do not hesitate to contact us. (2) Varicose veins of left lower extremity with inflammation: Comment: 10/17/2024 - left great saphenous vein radiofrequency ablation Code(s): I83.12 - Varicose veins of left lower extremity with inflammation Category: Medical Plan: Will treat right leg Coding Level of Care Code Est Pt Level 4 (05300) Diagnoses Varicose veins of right lower extremity with inflammation I83.11 Varicose veins of left lower extremity with inflammation I83.12
[2024-10-28 09:01] VITALS: BMI 25.7
== END 2024-10-28 09:28 | disposition home or self-care (01) ==
PROVIDERS: PCP Internal Medicine; Visit Provider Surgery Vascular Surgery
DX: I83.11 Varicose veins of right lower extremity with inflammation (principal); I83.12 Varicose veins of left lower extremity with inflammation
CPT/HCPCS: 99214

== ENCOUNTER → 2024-10-28 08:48 | Outpatient (BNVA) | payer OTHER, SELFPAY | PROVIDERS: PCP Internal Medicine; Visit Provider Surgery Vascular Surgery | DX: I83.11 Varicose veins of right lower extremity with inflammation (principal); I83.12 Varicose veins of left lower extremity with inflammation | CPT/HCPCS: 99212 ==

== ENCOUNTER 2024-11-10 09:32 | Outpatient (REF) | payer OTHER, SELFPAY ==
[2024-11-10 11:26] LABS: Alanine Aminotransferase 26 U/L (0-40); Albumin Level 4.3 g/dL (3.5-5.0); Alkaline Phosphatase 56 U/L (39-117); Anion Gap 11 (12-20); Aspartate Amino Transferase 21 U/L (5-37); Bilirubin Total 0.6 mg/dL (0.0-1.0); Blood Urea Nitrogen 17 mg/dL (9-16); Calcium 9.3 mg/dL (8.4-10.2); Carbon Dioxide 26 mmol/L (22-29); Chloride 110 mmol/L (96-108); Cholesterol 140 mg/dL (<200); Estimated Glomerular Filt Rate > 60; Glucose Random 90 mg/dL (60-115); HDL Cholesterol 55 mg/dL (>40); LDL Cholesterol Calculated 78 mg/dL (<100); Potassium 4.3 mmol/L (3.3-5.1); Sodium 143 mmol/L (135-145); Total Protein 7.2 g/dL (6.5-8.0); Triglycerides 38 mg/dL (<150)
== END 2024-11-10 09:33 | disposition home or self-care (01) ==
LOC: HO.LAB 09:32
PROVIDERS: PCP Internal Medicine; Visit Provider Internal Medicine
DX: E78.00 Pure hypercholesterolemia, unspecified (principal); I10 Essential (primary) hypertension; I87.2 Venous insufficiency (chronic) (peripheral); N32.81 Overactive bladder; Z72.0 Tobacco use
CPT/HCPCS: 36415; 80053; 80061

== ENCOUNTER 2024-11-14 09:36 | Outpatient (AMB) | payer OTHER, SELFPAY ==
--- NOTE | 2024-11-14 10:44 | A.OFFVIS_ITS ---
Intake Visit Reasons: Right GSV RFA Accompanied by: Self / Same As Patient Allergies sertraline Allergy (Severe, Verified 11/14/24 10:44) Unknown shellfish derived [SHELLFISH DERIVED] Allergy (Severe, Verified 11/14/24 10:44) THROAT CLOSES, EYES SHUT animal dander Allergy (Unknown, Verified 11/14/24 10:44) NASAL CONGESTION mold Allergy (Unknown, Verified 11/14/24 10:44) CONGESTION pollen extracts [POLLEN] Allergy (Unknown, Verified 11/14/24 10:44) NASAL CONGESTION ENVIROMENTAL Allergy (Unknown, Uncoded 10/28/24 09:04) NASAL CONGESTION PFSH Medical History Personal history of nicotine dependence Hyperplastic colon polyp (~2019) Surgical History History of right inguinal hernia repair History of colonoscopy Social History Tobacco use type: Cigarette Cigarettes Per Day: 20 Office Procedures Vascular Office Procedure Details Details: Diagnosis: Varicose veins with inflammation of right leg Procedure: Endovenous radiofrequency ablation of the right great saphenous vein(s) of the lower extremity. Surgeon: Dr. Melendez Assist: Idalia ROSE Anesthesia: Local infiltration 5 cc, Tumescent 400 cc. Estimated Blood Loss: minimal Specimen: Varicose veins The patient was transferred to the procedure suite and the insufficient saphenous vein was mapped by ultrasound and diagrammed on the overlying skin. The depth and diameter of the vein(s) to be treated was documented. The varicose tributary veins and suitable access sites were identified and mapped as well. The patient was then positioned supine on the procedure table. The affected limb was prepped and draped in the usual sterile fashion. The RF catheter was placed on the sterile field, flushed and wiped down, prepared, and connected by a sterile cable. The patient was placed in supine position and local anesthesia was instilled in the skin overlying the access site. A skin incision was made overlying the identified and mapped great saphenous vein entry site. The vein was accessed using ultrasound guidance and the Seldinger technique, a guide wire was introduced through the needle, which was then exchanged over the guide wire for a 6F sheath, which was secured in place. The guide wire was removed and the sheath was flushed. The RF catheter was placed into the vein through the sheath and preferentially, imaging was used to place the catheter tip just inferior to the superficial epigastric vein to preserve normal physiological flow in that vein. Additionally, it was confirmed by ultrasound guidance that the catheter tip was also placed a minimum of 1.5cm distal to the saphenofemoral junction. After the RF catheter position was verified by ultrasound, tumescent anesthesia was infiltrated, under ultrasound guidance, precisely into the perivenous compartment along the entire length of vein from the entry site to the sa phenofemoral junction until a halo of fluid was noted around the vein. The patient was then placed in supine position to further exsanguinate the superficial venous system. After RF catheter position was again confirmed with ultrasound imaging, and under direct external compression along the length of the heating element, RF energy was applied. The vein was segmentally ablated by heating a 8 cm segment and then indexing the catheter forward by 7.5 cm until the treatment length is completed. Device temperature was maintained at 120 plus or minus 5 degrees C with an initial power level of 40W dropping to below 20W for each treatment. Total vein length treated 48 cm Total cycles of RF 8. Repeat ultrasound of the saphenous vein was performed, confirming successful treatment. The catheter and sheath were withdrawn and hemostasis established with direct pressure. After assuring hemostasis, the skin incision over the saphenous vein was closed with a bandage and a compression wrap, and/ or graduated compression stocking was applied from the level of the foot to the most proximal level of the thigh. 01276 - Endovenous RF, 1st Vein All charges added?: Procedure code (CPT) selection complete Assessment & Plan Assessment & Plan (1) Varicose veins of right lower extremity with inflammation: Comment: 11/14/2024 - right great saphenous vein radiofrequency ablation Code(s): I83.11 - Varicose veins of right lower extremity with inflammation Category: Medical Plan: See op note Coding Level of Care Code Procedure Only Diagnoses Varicose veins of right lower extremity with inflammation I83.11 CPT Codes Details - Vascular 1: 05629 - Endovenous RF, 1st Vein ([id number])
== END 2024-11-14 10:27 | disposition home or self-care (01) ==
PROVIDERS: PCP Internal Medicine; Visit Provider Surgery Vascular Surgery
DX: I83.11 Varicose veins of right lower extremity with inflammation (principal)
CPT/HCPCS: 36475

== ENCOUNTER → 2024-11-14 09:36 | Outpatient (BNVA) | payer OTHER, SELFPAY | PROVIDERS: PCP Internal Medicine; Visit Provider Surgery Vascular Surgery | DX: I83.11 Varicose veins of right lower extremity with inflammation (principal) | CPT/HCPCS: 36475; J2003; J2004 ==

== ENCOUNTER 2024-12-02 08:44 | Outpatient (AMB) | payer OTHER, SELFPAY ==
[2024-12-02 08:54] VITALS: BMI 25.7
--- NOTE | 2024-12-02 08:54 | MHC.OFFVIS ---
Vital Signs 12/02/24 08:54 Height 6 ft 2 in Weight 200 lb BMI 25.7 Intake Visit Reasons: 2 wk follow up Right GSV RFA 11/14/24 Intake Note: 2 week follow up Right GSV RFA 11/14/24 and HX of Left GSV RFA 10/17/24. Pt states tat Right LE seems to feel like its taking loger to heal than the Left RFA. Pt has redness over the treated area. Pt states he has a suture that needs to be removed. Accompanied by: Self / Same As Patient Allergies sertraline Allergy (Severe, Verified 12/02/24 09:01) Unknown shellfish derived [SHELLFISH DERIVED] Allergy (Severe, Verified 12/02/24 09:01) THROAT CLOSES, EYES SHUT animal dander Allergy (Unknown, Verified 12/02/24 09:01) NASAL CONGESTION mold Allergy (Unknown, Verified 12/02/24 09:01) CONGESTION pollen extracts [POLLEN] Allergy (Unknown, Verified 12/02/24 09:01) NASAL CONGESTION ENVIROMENTAL Allergy (Unknown, Uncoded 12/02/24 09:01) NASAL CONGESTION HPI HPI 2 wk follow up Right GSV RFA 11/14/24: Details: Jose Carlos is presenting today as a 2 week follow up status post right GSV RFA on 11/14/2024. He is also status post left GSV RFA on 10/17/2024. He states he has been feeling much better. He states that the right leg has been taking a little bit longer to heal and he was concerns of some hardness in the right upper thigh. He states it has gotten better over the last couple of days. He states there was also some redness in the area after the procedure, but that has gone away as well. He does have a suture that remains in place in the calf at the incision site. He has no new concerns today. [facility] Medical History Personal history of nicotine dependence Hyperplastic colon polyp (~2019) Surgical History History of right inguinal hernia repair History of colonoscopy Social History Tobacco use type: Cigarette Cigarettes Per Day: 20 Review of Systems Const Reports as per HPI and Denies weakness ENT Reports Normal hearing present and Denies dizziness Card Reports as per HPI, Denies chest pain, Denies chest pain at rest, Denies chest pain with activity, Denies dyspnea and Denies dyspnea on exertion Resp Reports as per HPI, Denies cough, Denies dyspnea and Denies dyspnea on exertion GI Reports as per HPI, Denies abdominal pain, Denies nausea and Denies vomiting Musc Denies numbness Skin/Breast Reports as per HPI, Denies erythema and Denies wounds Neuro Reports Normal hearing present, Denies dizziness, Denies numbness, Denies Sensory deficit (Neuro) and Denies weakness Psych Reports no additional complaints Endo Reports no additional complaints Physical Exam Vital Signs: BMI result Body Mass Index 25.7 Const General: healthy appearing and no acute distress Orientation/consciousness: patient oriented x3 HEENT Head: Yes normal to inspection Ears: hearing grossly normal bilaterally Mouth: Normal oral and palatal mucosa present Resp Effort & Inspection: normal respiratory effort and able to speak in complete sentences Auscultation: clear to auscultation bilaterally Cardio Jugular venous distension: no JVD Rate: regular rate Rhythm: regular rhythm Heart sounds: S1 normal heart sound present and S2 normal heart sound present Bruits: no abdominal aortic bruits, no carotid bruits, no femoral bruits and no renal bruits Peripheral pulses: Peripheral pulses 2+ throughout GI Inspection: Yes normal to inspection Palpation (GI): No Abdominal aortic bruit present Skin General skin exam: no rashes or lesions noted Wounds: no wounds Hair: normal Neuro General: patient oriented x3 Cranial nerves: Yes Normal hearing present Cognition (Neuro): normal cognition Gait exam (Neuro): Normal gait present Motor exam (neuro): 5/5 motor strength present throughout Sensory Exam: No Sensory deficit (Neuro) Extrem Other: Right medial thigh: Slightly tender to palpation in the area of the GSV, areas of hardness felt. Right medial calf: Incision site clean, dry, and intact. Suture easily removed with a suture removal kit. No erythema or bleeding noted. General: Yes normal to inspection, Yes full ROM, Yes capillary refill normal and Yes normal gait Assessment & Plan Assessment & Plan (1) Varicose veins of right lower extremity with inflammation: Comment: 11/14/2024 - right great saphenous vein radiofrequency ablation Code(s): I83.11 - Varicose veins of right lower extremity with inflammation Category: Medical Plan: Jose Carlos is presenting today 2 weeks status post right great saphenous vein RFA, performed on 11/14/2024. He states he has been feeling much better, but has been taking longer to heal than his left leg. We did remove the suture from the incision site without difficulty. We discussed that it can take up to another month or 2 to have complete healing of the area. We discussed to be concerned if there is any redness, swelling, or increased pain, then please reach out to us. We discussed the importance of continuing with compression stockings, particularly with travel as well as if he is on his feet for lengthy periods of time. We discussed that if he has any other vascular concerns, to reach back out to us. We will have him follow up only as needed. Thank you for allowing us to participate in the patient's care. There are any questions or concerns, please do not hesitate to reach out to us. Coding Level of Care Code Est Pt Level 3 (98572) Diagnoses Varicose veins of right lower extremity with inflammation I83.11
== END 2024-12-02 09:14 | disposition home or self-care (01) ==
LOC: HO.HVS 08:45
PROVIDERS: PCP Internal Medicine; Visit Provider Physician Assistant Surgical
DX: I83.11 Varicose veins of right lower extremity with inflammation (principal)
CPT/HCPCS: 99213

== ENCOUNTER → 2024-12-02 08:44 | Outpatient (BNVA) | payer OTHER, SELFPAY | PROVIDERS: PCP Internal Medicine; Visit Provider Physician Assistant Surgical | DX: I83.11 Varicose veins of right lower extremity with inflammation (principal) | CPT/HCPCS: 99212 ==

== ENCOUNTER 2025-02-16 11:38 | Emergency (ER) | payer OTHER, SELFPAY ==
[2025-02-16] VITALS (8 sets, daily range): BP systolic 131–144; BP diastolic 86–101; PULSE 58–98; RESP 12–19; TEMP 36.6–36.9; O2SAT 97–100; BMI 25.7
--- NOTE | ~2025-02-16 | CT_ITS ---
EXAMINATION: CT HEAD WITHOUT IV CONTRAST HISTORY: trauma. TECHNIQUE: Unenhanced helical CT of the head was performed per standard departmental protocol. Coronal and sagittal reformats of the head were also evaluated. One or more of the following techniques was used for dose reduction: Automated exposure control, adjustment of the mA and/or kV according to patient size, use of iterative reconstruction technique. DLP: 742 mGy-cm COMPARISON: There are no prior studies available for comparison. FINDINGS: BRAIN: The brain parenchyma is unremarkable. There is normal pacheco/white differentiation. The ventricular system is normal in size and configuration. There is no mass effect or midline shift. No intra- or extra-axial fluid collections are identified. SINUSES: The visualized paranasal sinuses are clear. The mastoid air cells and middle ear cavities are well pneumatized. ORBITS: The visualized orbits are unremarkable. BONES/SOFT TISSUES: The extracranial soft tissues are unremarkable. The calvarium is intact. No suspicious lytic or sclerotic lesions. CT/CT head/brain wo IV con IMPRESSION: Unremarkable unenhanced head CT. Electronically signed by: Bharath Carter MD 02/16/2025 01:25 PM EDT
--- NOTE | ~2025-02-16 | CT_ITS ---
EXAMINATION: CT CERVICAL SPINE WITHOUT IV CONTRAST HISTORY: trauma. TECHNIQUE: Helical CT of the cervical spine was performed per standard departmental protocol. Coronal and sagittal reformatted images were also evaluated. One or more of the following techniques was used for dose reduction: Automated exposure control, adjustment of the mA and/or kV according to patient size, use of iterative reconstruction technique. DLP: 444 mGy-cm COMPARISON: There are no prior studies available for comparison. FINDINGS: CERVICAL SPINE: The vertebral bodies maintain normal height without evidence of fracture or subluxation. There is reversal of the normal cervical lordosis. There is diffuse moderate degenerative disc disease with disc space narrowing and osteophyte formation. There is diffuse facet osteoarthritis and uncovertebral joint hypertrophy causing multilevel neural foraminal stenosis. Evaluation for disc pathology is limited by lack of intrathecal contrast material, however. BRAIN: The visualized portion of the brain is unremarkable. SINUSES: The visualized paranasal sinuses, mastoid air cells and middle ear cavities are unremarkable. LUNG APICES: The visualized lung apices are clear. SOFT TISSUES: The visualized paraspinal soft tissues are unremarkable. CT/CT cervical spine wo IV con IMPRESSION: Reversal of the normal cervical lordosis. No evidence of fracture of the cervical spine. Degenerative changes as described. Electronically signed by: Bharath Carter MD 02/16/2025 01:34 PM EDT
--- NOTE | 2025-02-16 11:45 | ED_ITS ---
HPI - General Adult General Chief complaint: Syncope Stated complaint: Fall, Head Injury, Head Bleed Time Seen by Provider: 02/16/25 13:10 Source: patient, RN notes reviewed and old records reviewed Mode of arrival: ambulatory Limitations: no limitations History of Present Illness ED Provider: Lorraine HPI narrative: Patient is a 54-year-old male with history of BPH, varicose veins to lower extremities presenting to the emergency department with complaint of head injury following a syncopal episode prior to arrival. Patient reports that he was trying to fix his vehicle and was crouching down (not kneeling) when he had a syncopal episode. He reports feeling lightheaded prior to this incident. States that he hit his head on pavement. Unsure last Tdap. Complains of mild headache at this time. Also complaining of intermittent shooting pains to bilateral arms. Denies neck or back pain. Denies chest pain, dyspnea, or palpitations. He is not anticoagulated. MD complaint: syncope, head injury Related Data Home Medications ?Medication ?Instructions ?Recorded ?Confirmed buspirone 15 mg tablet 15 mg PO BID 07/07/24 09/29/24 loratadine 10 mg tablet (Claritin) 10 mg PO DAILY 07/07/24 09/29/24 sildenafil 100 mg tablet 100 mg PO DAILY 07/07/24 09/29/24 triamcinolone acetonide 55 mcg 1 spray intranasal DAILY 07/07/24 09/29/24 nasal spray aerosol (Nasacort Allergy) atorvastatin 20 mg tablet 20 mg PO DAILY 10/28/24 Previous Rx's ?Medication ?Instructions ?Recorded solifenacin 10 mg tablet (Vesicare) 10 mg PO DAILY #90 tabs 09/29/24 Allergies Allergy/AdvReac Type Severity Reaction Status Date / Time sertraline Allergy Severe Unknown Verified 02/16/25 11:47 shellfish derived Allergy Severe THROAT Verified 02/16/25 11:47 [SHELLFISH DERIVED] CLOSES, EYES SHUT animal dander Allergy Unknown NASAL Verified 02/16/25 11:47 CONGESTION mold Allergy Unknown CONGESTION Verified 02/16/25 11:47 pollen extracts [POLLEN] Allergy Unknown NASAL Verified 02/16/25 11:47 CONGESTION ENVIROMENTAL Allergy Unknown NASAL Uncoded 02/16/25 11:47 CONGESTION Review of Systems 2 Review of Systems: As per HPI Yes all other systems are reviewed and are negative Constitutional: Constitutional: Reports as per [facility] Past Medical History Medical History Personal history of nicotine dependence Hyperplastic colon polyp (~2019) Surgical History History of right inguinal hernia repair History of colonoscopy Social History Social History Tobacco use type: Cigarette Cigarettes Per Day: 20 Smoked in Last 30 Days: Yes Use of substances other than those prescribed or required for medical reasons: No Advance Directives: Yes Advance Directives Information Provided: No Advance Directives on File: No Do you have a plan to hurt others: No Plan Physical Exam ED Vital Signs: Vital Signs - 24 hr 02/16/25 11:45 02/16/25 12:42 02/16/25 12:52 Temperature 98 F 98.4 F Pulse Rate 80 61 Respiratory Rate 19 18 Blood Pressure 143/93 H 136/90 H Pulse Oximetry 97 100 98 Oxygen Delivery Method Room Air Room Air Room Air 02/16/25 12:56 02/16/25 12:58 02/16/25 13:00 Temperature Pulse Rate 58 69 80 Respiratory Rate Blood Pressure 138/87 140/86 H 144/101 H Pulse Oximetry Oxygen Delivery Method BMI result Body Mass Index 25.7 Vital signs have been reviewed and appear to be correct. Blood pressure normal. Heart rate normal. Respiratory rate normal. Temperature normal. Oxygen saturation normal. Const General: cooperative, healthy appearing and no acute distress Orientation/consciousness: oriented to person, oriented to place, oriented to time and patient oriented x3 Limitations: no limitations HENMT Head: Yes normocephalic and Yes laceration (mid forehead) Ears: hearing grossly normal bilaterally, external ears normal, TM's normal bilaterally and EAC's normal General nose exam: Normal nasal mucous membranes and turbinates present and Abnormal external nose present nasal abrasion; Negative for nasal tenderness Face and sinus: Yes face symmetric Mouth: oropharynx normal and moist mucous membranes Throat: Yes uvula midline Eyes Pupils: Equal, round and reactive pupils present Neck Neck: Yes normal visual inspection and Yes supple Chest Chest palpation & inspection: normal inspection of the chest and normal palpation of entire chest wall Resp Effort & Inspection: normal respiratory effort and able to speak in complete sentences Auscultation: clear to auscultation bilaterally Cardio Rate: regular rate Rhythm: regular rhythm Heart sounds: S1 normal heart sound present and S2 normal heart sound present GI Inspection: Yes normal to inspection and No abdominal wall ecchymosis Palpation (GI): Soft to palpation and nontender Auscultation: normoactive bowel sounds General: Yes no CVA tenderness Back/Spine/Pelvis Back: no CVA tenderness Cervical Spine: normal cervical lordosis, cervical ROM normal, No Cervical spine tenderness and No step off deformity Thoracic/Lumbar Spine: thoracic and lumbar spine normal to inspection, thoraco- lumbar ROM normal, No pain with thoraco-lumbar ROM, No thoracic spinal tenderness and No lumbar spinal tenderness Pelvis: no pain with anterior-posterior compression and no pain with lateral compression Skin General skin exam: elasticity normal and turgor normal Neuro General: oriented to person, oriented to place, oriented to time, patient oriented x3, tone normal, moves all extremities, Normal light touch and pain sensation, no focal motor deficits, CN's II-XI intact bilaterally and deep tendon reflexes 2+ bilaterally Cranial nerves: Yes Equal, round and reactive pupils present Cognition (Neuro): normal cognition Motor exam (neuro): 5/5 motor strength present throughout, Normal motor muscle tone present throughout and Motor abnormalities not present Extrem General: Yes full ROM, Yes no pedal edema and Yes no calf tenderness Psych Mental Status: mental status grossly normal Affect: normal affect Thought process: Normal thought process present Course Course Course Narrative: RME, this is a rapid medical exam performed by Richar Cadet please refer to primary provider for complete H&P- 54 year old male with history of hyperlipidemia presents for evaluation of a head injury that occurred following a syncopal episode. The patient reports that he was working on his car when he passed out and fell forward striking his head. Plan for labs, EKG, head and cervical spine CT Medications Administered Discontinued Medications Generic Name Dose Route Start Last Admin Trade Name Freq PRN Reason Stop Dose Admin Diphtheria/Tetanus/Acell Pertussis 0.5 ml 02/16/25 13:17 02/16/25 13:47 Diphth,Pertus(Acell),Tet Adult 0.5 Ml Syringe IM 02/16/25 13:18 0.5 ml .ONCE ONE Administration Fentanyl 50 mcg 02/16/25 13:17 02/16/25 13:46 Fentanyl Citrate/Pf 100 Mcg/2 Ml Vial IVPUSH 02/16/25 13:18 50 mcg ONCE ONE Administration Protocol Ketorolac Tromethamine 15 mg 02/16/25 15:48 02/16/25 15:56 Ketorolac Tromethamine 15 Mg/Ml Vial IVPUSH 02/16/25 15:49 15 mg ONCE ONE Administration Lidocaine HCl 10 ml 02/16/25 11:51 02/16/25 13:46 Lidocaine Hcl 1 % Mpf 5 Ml Vial INFILTRATI 02/16/25 11:52 10 ml ONCE ONE Administration Morphine Sulfate 4 mg 02/16/25 15:40 02/16/25 15:55 Morphine Sulfate 4 Mg/Ml Cartridge IVPUSH 02/16/25 15:41 4 mg ONCE ONE Administration Protocol Procedures Laceration Laceration 1: Site: face Size (cm): 2 Description: stellate, irregular and contaminated Depth: simple, single layer Local Anesthetic: lidocaine 1% Amount of anesthesia used (mL): 4 Pre-repair: wound explored, irrigated extensively and deep structures intact Skin layer closed with: other (prolene) Size (cm): 6-0 Number of sutures: 8 Technique: simple, interrupted Medical Decision Making Medical Decision Making [facility] Narrative: Patient is a 54-year-old male with history of BPH, varicose veins to lower extremities presenting to the emergency department with complaint of head injury following a syncopal episode prior to arrival. On exam patient is awake, A+Ox3, VS WNL, afebrile, normal neurological exam without focal deficits, physical exam findings as above. Given reported symptoms and physical exam findings, initial differential includes but is not limited to ICH, skull or cervical vertebral fracture, syncope, anemia, electrolyte abnormality. PE unlikely, Wells score 0. Labs notable for no leukocytosis, no anemia, no significant electrolyte abnormalities, neg troponin. CT head and c spine notable for no acute abnormalities. My interpretation is in agreement with the radiologist's interpretation. Forehead laceration cleaned and repaired as per procedure note. Tdap updated. Instructed patient to follow up with PCP. Return precautions discussed with patient and at bedside. Patient and verbalized understanding of and agreement with plan. Differential Diagnosis Differential Diagnoses: The differential diagnosis associated with the presentation includes As per [facility] Admission/Observation Consideration of admission/observation: Escalation of care including admission/observation considered Patient would have been admitted to the hospital had their work up had any findings where hospital admission was appropriate and their clinical presentation warranted hospital admission. Lab Data [facility] Lab Attestation statement: I reviewed the patient's lab results. as per [facility] 02/16/25 12:03 02/16/25 12:03 Labs: Lab Results 02/16/25 02/16/25 Range/Units 12:03 13:10 WBC 5.3 (4.8-10.8) X10*3/uL RBC 4.61 (4.60-5.80) X10*6/uL Hgb 14.5 (14.0-18.0) g/dl Hct 43.0 (42.0-52.0) % MCV 93.3 (80.0-98.0) fL MCH 31.5 (27.0-33.0) pg MCHC 33.7 (31.0-36.0) g/dl RDW 14.0 (11.0-16.0) % Plt Count 196 (160-400) X10*3/uL MPV 8.8 L (9.4-12.4) fL Immature Gran % (Auto) 0.2 (0.0-0.4) % Neut % (Auto) 60.5 (45-73) % Lymph % (Auto) 25.8 (20-40) % [place] % (Auto) 10.2 (2-11) % Eos % (Auto) 2.7 (0-4) % Baso % (Auto) 0.6 (0-2) % Lymph # (Auto) 1.4 (1.2-4.9) X10*3/uL [place] # (Auto) 0.5 (0.1-1.2) X10*3/uL Eos # (Auto) 0.1 (0.0-0.4) X10*3/uL Baso # (Auto) 0.0 (0.0-0.2) X10*3/uL Abs Immat Gran (auto) 0.01 (0.00-0.03) X10*3/uL Absolute Neuts (auto) 3.2 (2.0-8.3) x10*3/uL Absolute Nucleated RBC 0.000 (0.0-0.012) X10*3/uL Nucleated RBC % (auto) 0.0 (0.0-0.2) /100WBC Sodium 142 (135-145) mmol/L Potassium 3.8 (3.3-5.1) mmol/L Chloride 110 H (96-108) mmol/L Carbon Dioxide 27 (22-29) mmol/L Anion Gap 9 L (12-20) BUN 12 (9-16) mg/dL Creatinine 0.97 (0.5-1.4) mg/dL Estim Creat Clear Calc 100.0 Estimated GFR > 60 Random Glucose 96 (60-115) mg/dL Calcium 9.2 (8.4-10.2) mg/dL Total Bilirubin 0.6 (0.0-1.0) mg/dL AST 23 (5-37) U/L ALT 23 (0-40) U/L Alkaline Phosphatase 45 (39-117) U/L Troponin I High Sens < 2.7 (<3.5-35.0) ng/L Total Protein 6.4 L (6.5-8.0) g/dL Albumin 4.4 (3.5-5.0) g/dL Lipase 7 L (8-78) U/L Urine Color Yellow Urine Appearance Clear Urine pH 7.0 (5.0-9.0) Ur Specific [place] 1.010 (1.005-1.025) Urine Protein Negative (Neg-Trace) mg/dL Urine Glucose (UA) Negative (Negative) mg/dL Urine Ketones Negative (Negative) mg/dL Urine Blood Negative (Negative) Urine Nitrite Negative (Negative) Ur Leukocyte Esterase Negative (Negative) Urine RBC 0-2 (0-2) /HPF Urine WBC 0-5 (0-5) /HPF Ur Squamous Epith Cells 0-2 (0-2) /HPF Urine Bacteria None Seen (None Seen) Hyaline Casts 0-2 (0-2) /LPF Independent Interpretation I performed an independent interpretation of an: EKG (normal sinus rhythm, rate 70bpm, normal MT interval and QT) and CT Scan Interpretation: CT head and C-spine is without evidence of acute injury, ICH Radiology Impression Discussion of test interpretation with radiology: I have reviewed the radiologist's reading. Radiologist Impression: CT/CT head/brain wo IV con IMPRESSION: Unremarkable unenhanced head CT. CT/CT cervical spine wo IV con IMPRESSION: Reversal of the normal cervical lordosis. No evidence of fracture of the cervical spine. Degenerative changes as described. External Record Review External record reviewed: Inpatient record, Office record and Outpatient record Discharge Plan Discharge Clinical Impression: Syncope, Forehead laceration Patient Disposition: Home, Self-Care Instructions: Laceration (DC), Care For Your Stitches (DC), Stitches Removal (ED), Syncope (DC) Additional Instructions: You were evaluated in the emergency department today after an episode of syncope, also known as fainting. You sustained a laceration to your forehead during your fall. The laceration was repaired in the emergency department with sutures (stitches) which will need to be removed in 5-7 days. Please keep the area surrounding the laceration clean and dry and keep dressing in place for the next 24 hours. After that please change the dressing and assess the wound daily. Do not submerge the wound in water until the stitches has been removed and the wound has fully healed (no washing dishes, swimming, hot tubs, etc. and ESPECIALLY no outdoor water). Keep the area out of direct sunlight and use sunblock once wound is fully healed for the next 6 months to help prevent scarring. The CT scans of your head and neck were normal. Your EKG was normal. We recommend that you follow-up with your primary care provider within the next 2 days. Return to the emergency department if you develop worsening or uncontrolled symptoms, headache, chest pain, shortness of breath, persistent vomiting, vision changes, recurrent fainting or any other concerning symptoms. Prescriptions: No Action sildenafil 100 mg tablet 100 mg PO DAILY buspirone 15 mg tablet 15 mg PO BID loratadine [Claritin] 10 mg tablet 10 mg PO DAILY triamcinolone acetonide [Nasacort Allergy] 55 mcg aerosol,spray 1 spray intranasal DAILY Rx Instructions: administer into each nostril solifenacin [Vesicare] 10 mg tablet 10 mg PO DAILY Qty: 90 3RF atorvastatin 20 mg tablet 20 mg PO DAILY Print Language: Setswana
--- NOTE | 2025-02-16 11:46 | ECG_ITS ---
Test Reason : CHEST PAIN Blood Pressure : */* mmHG Vent. Rate : 70 BPM Atrial Rate : 70 BPM P-R Int : 158 ms QRS Dur : 102 ms QT Int : 416 ms P-R-T Axes : 79 9 56 degrees QTcB Int : 449 ms Normal sinus rhythm Possible Left atrial enlargement Borderline ECG No previous ECGs available Referred By: Bill Cadet Electronically Signed By: LEE RAE MD
[2025-02-16 12:07] LABS: MANUAL DIFF FLAG NO
[2025-02-16 12:09] LABS: Basophils Percent Auto 0.6 % (0-2); Eosinophils Absolute Auto 0.1 X10*3/uL (0.0-0.4); Eosinophils Percent Auto 2.7 % (0-4); Hemoglobin 14.5 g/dl (14.0-18.0); Imm Gran Abs Auto 0.01 X10*3/uL (0.00-0.03); Imm Gran Pct Auto 0.2 % (0.0-0.4); Lymphocytes Absolute Auto 1.4 X10*3/uL (1.2-4.9); Lymphocytes Percent Auto 25.8 % (20-40); Mean Corpuscular HGB Conc 33.7 g/dl (31.0-36.0); Mean Corpuscular Hemoglobin 31.5 pg (27.0-33.0); Mean Corpuscular Volume 93.3 fL (80.0-98.0); Mean Platelet Volume 8.8 fL (9.4-12.4); Monocytes Absolute Auto 0.5 X10*3/uL (0.1-1.2); Monocytes Percent Auto 10.2 % (2-11); Neutrophils Absolute Auto 3.2 x10*3/uL (2.0-8.3); Neutrophils Percent Auto 60.5 % (45-73); Platelet Count 196 X10*3/uL (160-400); Red Blood Count 4.61 X10*6/uL (4.60-5.80); White Blood Count 5.3 X10*3/uL (4.8-10.8)
[2025-02-16 12:22] LABS: Alanine Aminotransferase 23 U/L (0-40); Albumin Level 4.4 g/dL (3.5-5.0); Alkaline Phosphatase 45 U/L (39-117); Anion Gap 9 (12-20); Aspartate Amino Transferase 23 U/L (5-37); Bilirubin Total 0.6 mg/dL (0.0-1.0); Blood Urea Nitrogen 12 mg/dL (9-16); Calcium 9.2 mg/dL (8.4-10.2); Carbon Dioxide 27 mmol/L (22-29); Chloride 110 mmol/L (96-108); Estimated Glomerular Filt Rate > 60; Glucose Random 96 mg/dL (60-115); Lipase 7 U/L (8-78); Potassium 3.8 mmol/L (3.3-5.1); Sodium 142 mmol/L (135-145); Total Protein 6.4 g/dL (6.5-8.0)
[2025-02-16 12:30] LABS: Troponin-I High Sensitivity < 2.7 ng/L (<3.5-35.0)
[2025-02-16 13:18] LABS: Appearance Urine Clear; Color Urine Yellow; Glucose Urine UA Negative (Negative); Leukocyte Esterase Urine Negative (Negative); Nitrite Urine Negative (Negative); Urine Blood Negative (Negative); Urine Ketones Negative (Negative); Urine Protein Negative (Neg-Trace)
[2025-02-16 13:21] LABS: Bacteria Urine None Seen (None Seen); Hyaline Casts Urine 0-2 /LPF (0-2); RBC Urine 0-2 /HPF (0-2); Squamous Epithelial Cell Urine 0-2 /HPF (0-2); WBC Urine 0-5 /HPF (0-5)
[2025-02-16] MEDS: fentaNYL citrate/PF 100 MCG/2 ML VIAL 50 MCG IVPUSH (13:46)
[2025-02-16] MEDS: Lidocaine HCl 1 % MPF 5 ML VIAL 10 ML INFILTRATI (13:46)
[2025-02-16] MEDS: Diphth,Pertus(ACell),Tet Adult 0.5 ML SYRINGE IM (13:47)
--- NOTE | 2025-02-16 15:41 | PC.NURSE ---
54 M presents to ED following a syncope episode while working on his car and hitting his head on the curb with LOC. Pt has a bandage wrapped around his head, left eye looks a little swollen but denies vision changes. Eyes PERRLA. Pt has some abrasions on his head, no active bleeding at this time. RR even and unlabored, denies SOB. Pt denies chest pain.
[2025-02-16] MEDS: Morphine Sulfate 4 MG/ML CARTRIDGE IVPUSH (15:55)
[2025-02-16] MEDS: Ketorolac Tromethamine 15 MG/ML VIAL IVPUSH (15:56)
== END 2025-02-16 17:21 | disposition home or self-care (01) ==
PROVIDERS: Physician Assistant; Emergency Provider Emergency Medicine; PCP Internal Medicine
DX: S01.81XA Laceration without foreign body of other part of head, initial encounter (principal); R55 Syncope and collapse; R51.9 Headache, unspecified; M54.2 Cervicalgia; R07.89 Other chest pain; F17.210 Nicotine dependence, cigarettes, uncomplicated; X58.XXXA Exposure to other specified factors, initial encounter; Y93.9 Activity, unspecified; Y92.9 Unspecified place or not applicable; Y99.8 Other external cause status; Z79.899 Other long term (current) drug therapy; Z23 Encounter for immunization
CPT/HCPCS: 12051; 36415; 70450; 72125; 80053; 81001; 83690; 84484; 85025; 90471; 90715; 93005; 96374; 96375; 99284; 99285; J1885; J2003; J2270; J3010

== ENCOUNTER → 2025-02-16 11:46 | Outpatient (BNV) | payer OTHER, SELFPAY | PROVIDERS: Emergency Provider Emergency Medicine; PCP Internal Medicine; Visit Provider Radiology Diagnostic Radiology | DX: M50.30 Other cervical disc degeneration, unspecified cervical region (principal); G44.309 Post-traumatic headache, unspecified, not intractable | CPT/HCPCS: 70450; 72125 ==

== ENCOUNTER → 2025-02-16 11:46 | Outpatient (BNV) | payer OTHER, SELFPAY | PROVIDERS: Emergency Provider Emergency Medicine; PCP Internal Medicine; Visit Provider Internal Medicine Cardiovascular Disease | DX: R07.9 Chest pain, unspecified (principal) | CPT/HCPCS: 93010 ==

== ENCOUNTER 2025-02-23 08:54 | Emergency (ER) | payer OTHER, SELFPAY ==
[2025-02-23 09:01] VITALS: BP 148/85; PULSE 79; RESP 18; TEMP 37; O2SAT 100; BMI 25.2
--- NOTE | 2025-02-23 09:52 | ED.GENADULT ---
HPI - General Adult General Chief complaint: Skin/Abscess/Foreign Body Stated complaint: suture removal Time Seen by Provider: 02/23/25 09:52 Source: patient, RN notes reviewed and old records reviewed Mode of arrival: ambulatory Limitations: no limitations History of Present Illness ED Provider: Lorraine HPI narrative: Patient is a 54-year-old male presenting to the emergency department for removal of sutures from 02/16/2025. Denies any erythema, discharge, fevers or other complications. Denies any additional syncopal episodes. MD complaint: suture removal Onset (ago): week(s) Related Data Home Medications ?Medication ?Instructions ?Recorded ?Confirmed buspirone 15 mg tablet 15 mg PO BID 07/07/24 09/29/24 loratadine 10 mg tablet (Claritin) 10 mg PO DAILY 07/07/24 09/29/24 sildenafil 100 mg tablet 100 mg PO DAILY 07/07/24 09/29/24 triamcinolone acetonide 55 mcg 1 spray intranasal DAILY 07/07/24 09/29/24 nasal spray aerosol (Nasacort Allergy) atorvastatin 20 mg tablet 20 mg PO DAILY 10/28/24 Previous Rx's ?Medication ?Instructions ?Recorded solifenacin 10 mg tablet (Vesicare) 10 mg PO DAILY #90 tabs 09/29/24 Allergies Allergy/AdvReac Type Severity Reaction Status Date / Time sertraline Allergy Severe Unknown Verified 02/23/25 09:03 shellfish derived Allergy Severe THROAT Verified 02/23/25 09:03 [SHELLFISH DERIVED] CLOSES, EYES SHUT animal dander Allergy Unknown NASAL Verified 02/23/25 09:03 CONGESTION mold Allergy Unknown CONGESTION Verified 02/23/25 09:03 pollen extracts [POLLEN] Allergy Unknown NASAL Verified 02/23/25 09:03 CONGESTION ENVIROMENTAL Allergy Unknown NASAL Uncoded 02/16/25 11:47 CONGESTION Review of Systems Review of Systems: As per HPI Yes all other systems are reviewed and are negative Constitutional: Constitutional: Reports as per HPI [facility] Past Medical History Medical History Personal history of nicotine dependence Hyperplastic colon polyp (~2019) Surgical History History of right inguinal hernia repair History of colonoscopy Social History Social History Tobacco use type: Cigarette Cigarettes Per Day: 20 Advance Directives: No Advance Directives Information Provided: Yes Physical Exam ED Vital Signs: Vital Signs - 24 hr 02/23/25 09:01 Temperature 98.6 F Pulse Rate 79 Respiratory Rate 18 Blood Pressure 148/85 H Pulse Oximetry 100 Oxygen Delivery Method Room Air BMI result Body Mass Index 25.2 Vital signs have been reviewed and appear to be correct. Blood pressure normal. Heart rate normal. Respiratory rate normal. Temperature normal. Oxygen saturation normal. Const General: cooperative, healthy appearing and no acute distress Orientation/consciousness: oriented to person, oriented to place, oriented to time and patient oriented x3 Limitations: no limitations HENMT Head: Yes normocephalic Head images: 1. scabbing around sutures without erythema, warmth, drainage Ears: external ears normal General nose exam: Normal external nose present Face and sinus: Yes face symmetric Mouth: oropharynx normal and moist mucous membranes Throat: Yes uvula midline Eyes Pupils: Equal, round and reactive pupils present Neck Neck: Yes normal visual inspection and Yes supple Resp Effort & Inspection: normal respiratory effort and able to speak in complete sentences Auscultation: clear to auscultation bilaterally Cardio Rate: regular rate Rhythm: regular rhythm Heart sounds: S1 normal heart sound present and S2 normal heart sound present Skin General skin exam: elasticity normal and turgor normal Neuro General: oriented to person, oriented to place, oriented to time, patient oriented x3, moves all extremities, no focal motor deficits and CN's II-XI intact bilaterally Cranial nerves: Yes Equal, round and reactive pupils present Cognition (Neuro): normal cognition Extrem General: Yes full ROM, Yes no pedal edema and Yes no calf tenderness Psych Mental Status: mental status grossly normal Affect: normal affect Thought process: Normal thought process present Medical Decision Making Medical Decision Making MDM Narrative: Patient is a 54-year-old male presenting to the emergency department for removal of sutures from 02/16/2025. On exam patient is awake, A+Ox3, VS WNL, afebrile, normal neurological exam without focal deficits, physical exam findings as above. Given reported symptoms and physical exam findings, initial differential includes but is not limited to suture removal, wound check. Sutures (#8) removed without difficulty with success. Advised patient to continue to assess the wound daily for signs of infection and follow up with PCP or return here if these occur. Patient verbalized understanding of and agreement with plan. Differential Diagnosis Differential Diagnoses: The differential diagnosis associated with the presentation includes as per MDM Admission/Observation Consideration of admission/observation: Escalation of care including admission/observation considered Patient would have been admitted to the hospital had their work up had any findings where hospital admission was appropriate and their clinical presentation warranted hospital admission. External Record Review External record reviewed: Inpatient record, Office record and Outpatient record Discharge Plan Discharge Clinical Impression: Visit for suture removal Patient Disposition: Home, Self-Care Instructions: Stitches Removal (ED) Additional Instructions: You were seen in the emergency department today for suture removal. Your wound appears to be healing well. Please keep the area surrounding the wound clean and dry andcover with Band-Aid until fully healed. Do not submerge in water until fully healed. Please continue to assess the wound daily. Keep the area out of direct sunlight for the next 6 months to help prevent scarring and apply sunscreen before going outdoors daily once wound has fully healed. If you develop fever, redness, swelling at the site of your laceration, or thick yellow drainage please come back to the ER for a wound check. Prescriptions: No Action sildenafil 100 mg tablet 100 mg PO DAILY buspirone 15 mg tablet 15 mg PO BID loratadine [Claritin] 10 mg tablet 10 mg PO DAILY triamcinolone acetonide [Nasacort Allergy] 55 mcg aerosol,spray 1 spray intranasal DAILY Rx Instructions: administer into each nostril solifenacin [Vesicare] 10 mg tablet 10 mg PO DAILY Qty: 90 3RF atorvastatin 20 mg tablet 20 mg PO DAILY Print Language: Norwegian
--- NOTE | 2025-02-23 10:40 | PC.NURSE ---
Pt having sutures removed by provider at this time.
[2025-02-23 11:34] VITALS: BP 119/77; PULSE 60; RESP 15; TEMP 36.8; O2SAT 99
[2025-02-23 11:40] VITALS: BP 119/77; PULSE 60; RESP 15; TEMP 36.8; O2SAT 99
== END 2025-02-23 11:41 | disposition home or self-care (01) ==
PROVIDERS: Emergency Provider Emergency Medicine Emergency Medical Services; PCP Internal Medicine
DX: Z48.02 Encounter for removal of sutures (principal)
CPT/HCPCS: 99284

== ENCOUNTER 2025-03-18 09:24 | Outpatient (REF) | payer OTHER, SELFPAY ==
--- OUTSIDE RECORDS SUMMARY | 2025-03-18 09:45 | XMS_ITS | Patient Health Record ---
Author Organization [facility] Address [address] [place] [address] Care Team Providers Care Safety Companion Name Role Phone Sanam Alvarez Primary Care Provider Taj Felipe Jr Unavailable [phone] Allergies Allergen (clinical drug ingredient) Drug/Non Drug Allergy documented on EMR Reaction Allergy Type Onset Date Status mold , dust , animal s, shellfish (uncoded) Unknown Allergy Active Reason For Referral No Information Medications Medication SIG (Take, Route, Frequency, Duration) Notes Start Date End Date Status Claritin 10 MG 1 capsule Orally Onc e a day for 30 day(s) Active MiraLax (colon prep) 8.3 ounce ((238) grams mixed with Gatorade or Crystal Light orally begin at 5:00 p.m. the day before the procedure for 1 day 06/26/2019 Active Immunizations Vaccine Route Administration Date Status Comme nts Influenza Unknown 06/26/2019 Refused Social History Tobacco Use: Social History Observation Description Date Details (start date - stop date) Current Smoker NA - NA Tobacco Use/Smoking Question Answer Notes Patient is a current smoker How often do you smoke cigarettes? every day How many cigarettes a day do you smoke? 31 or mo re Alcohol Screen Question Answer Notes Did you have a drink contain ing alcohol in the past year? Yes How often did you have a dri nk containing alcohol in the past year? Never (0 point) How many drinks did you have on a typical day when you were drinking in the past year? 1 or 2 drinks (0 point) Points 0 Interpretation Negative Problems Problem Type SNOMED Code ICD Code Onset Dates Problem Status W/U Status Risk Notes Problem [id number] Colon cancer screening (Z12.11) Active confirmed Problem [id number] Encounter for other preprocedural examination (Z01.818) Active confirmed Plan Of Treatment Future Test Test Name Order Date COLONOSCOPY 06/26/2019 Insurance Providers Payer Name Payer Address Payer Phone Subscriber Number Group Number Insured Name Patient Relationship to Insured Coverage Start Date Coverage End Date [facility] [address] [place] [address] [id number] ERNESTO CARDENAS Self - patient is the insured Medical (General) History Medical History History ICD Code environmental allergies Surgical History Surgery Date(Month/Year) hernia repair
[2025-03-18 11:03] LABS: Alanine Aminotransferase 29 U/L (0-40); Albumin Level 4.5 g/dL (3.5-5.0); Alkaline Phosphatase 44 U/L (39-117); Anion Gap 11 (12-20); Aspartate Amino Transferase 24 U/L (5-37); Blood Urea Nitrogen 13 mg/dL (9-16); Calcium 9.1 mg/dL (8.4-10.2); Carbon Dioxide 25 mmol/L (22-29); Chloride 109 mmol/L (96-108); Cholesterol 140 mg/dL (<200); Estimated Glomerular Filt Rate > 60; HDL Cholesterol 56 mg/dL (>40); Potassium 4.0 mmol/L (3.3-5.1); Sodium 141 mmol/L (135-145); Total Protein 6.8 g/dL (6.5-8.0); Triglycerides 30 mg/dL (<150)
== END 2025-03-18 09:25 | disposition home or self-care (01) ==
LOC: HO.LAB 09:24
PROVIDERS: PCP Internal Medicine; Visit Provider Internal Medicine
DX: R55 Syncope and collapse (principal); I10 Essential (primary) hypertension; E78.00 Pure hypercholesterolemia, unspecified; Z68.25 Body mass index [BMI] 25.0-25.9, adult
CPT/HCPCS: 36415; 80053; 80061; 84153

== ENCOUNTER 2025-03-30 11:41 | Outpatient (AMB) | payer OTHER, SELFPAY ==
--- NOTE | 2025-03-30 11:42 | MHC.OFFVIS ---
Intake Visit Reasons: 6m follow up Intake Note: Patient is present for 6m follow up Urology Medication:Soloifenacin, Sildenafil Antibiotic Allergy:None Blood Thinner:None Exhaust And Muffler Repairer Required: No Allergies sertraline Allergy (Severe, Verified 03/30/25 11:42) Unknown shellfish derived (SHELLFISH DERIVED) Allergy (Severe, Verified 03/30/25 11:42) THROAT CLOSES, EYES SHUT animal dander Allergy (Unknown, Verified 03/30/25 11:42) NASAL CONGESTION mold Allergy (Unknown, Verified 03/30/25 11:42) CONGESTION pollen extracts (POLLEN) Allergy (Unknown, Verified 03/30/25 11:42) NASAL CONGESTION ENVIROMENTAL Allergy (Unknown, Uncoded 02/16/25 11:47) NASAL CONGESTION Medication List - Last Reconciled 03/30/25 by Rl Cyr MD atorvastatin 20 mg PO DAILY buspirone 15 mg PO BID loratadine (Claritin) 10 mg PO DAILY sildenafil 100 mg PO DAILY solifenacin (Vesicare) 10 mg PO DAILY triamcinolone acetonide (Nasacort Allergy) 1 spray intranasal DAILY HPI Comments Details: 03/30/25--Jose Carlos is a 54-year-old male who is followed for lower urinary tract symptoms of urgency he is prescribed VESIcare 10 mg daily. PSA screening-03/18/25--1.69 History of Present Illness - The patient is a 54-year-old male presenting with lower urinary tract symptoms. - Symptoms include urgency and frequency, initially managed well with Vesicare 10 mg daily, but effectiveness has decreased over time. - Patient reports fluid intake adjustments, reducing caffeine consumption to one cup of coffee in the morning. - Recent episode of dehydration led to an emergency room visit in February, with no definitive cause identified. - Patient states he experienced a syncopal episode, resulting in a fall and head injury, he was seen in the ED and has followed up with his PCP. - Current medications include atorvastatin for cholesterol and buspirone 15 mg BID. - PSA screening conducted in March showed a normal result of 1.69. Results - PSA screenin.69--03/18/25 Plan - Continue Vesicare 10 mg daily for lower urinary tract symptoms. - Consideration of tamsulosin was discussed but deferred due to potential dizziness and recent syncopal episode. - Follow-up in 9 to 10 months with urine check and PVR at the office. 09/29/24--Jose Carlos is here for follow-up. History of Nicotine dependency. He states that he is doing very well on the VESIcare 10 mg daily. He is not looking for the bathroom all the time he feels more ?normal?. He has also been monitoring his caffeine intake. I have reviewed renal ultrasound is within normal limits. Urine cytology [id number]- for malignant cells. Follow-up in 6 months. 07/07/24--Jose Carlos is a 54-year-old male who is here for evaluation for lower urinary tract symptoms of urinary frequency. He states that if he is not able to get to the bathroom fast enough he will leak a little bit. Occasional dysuria denies gross hematuria. Comorbidity nicotine dependency. I have advised to limit caffeine intake. Labs reviewed-04/21/2024-PSA 1.99 ng/mL. Discussed further evaluation with renal bladder ultrasound and we will trial VESIcare. [facility], [facility] Medical History Personal history of nicotine dependence Hyperplastic colon polyp (~2019) Surgical History History of right inguinal hernia repair History of colonoscopy Social History Tobacco use type: Cigarette Cigarettes Per Day: 20 Review of Systems Const All systems reviewed & are unremarkable except as noted in HPI and below Reports no additional complaints Eyes Reports no additional complaints ENT Reports no additional complaints Card Reports no additional complaints Resp Reports no additional complaints GI Reports no additional complaints Reports as per HPI Musc Reports no additional complaints Skin/Breast Reports system reviewed and no additional complaints, except as documented Neuro Reports no additional complaints Psych Reports no additional complaints Endo Reports no additional complaints Karan/Lymph Reports no additional complaints Aller/Immun Reports no additional complaints Telehealth Telehealth Telehealth Platform: Telephone Location of provider rendering services: practice address Location of patient: address on file Patient Identification confirmed using: Name, : Yes Telehealth method: voice only Patient verbally consented to treatment: Yes Patient verbally consented to billing insurance company: Yes Patient informed of any privacy concerns related to visit: Yes Minutes spent on Phone/Video with Pt.: 14 Assessment & Plan Assessment & Plan (1) Urinary frequency: Code(s): R35.0 - Frequency of micturition Category: Medical (2) Personal history of nicotine dependence: Comment: (former smoker, onset 20yo, 1ppd, quit __) Code(s): Z87.891 - Personal history of nicotine dependence Category: Medical (3) BPH (benign prostatic hyperplasia): Code(s): N40.0 - Benign prostatic hyperplasia without lower urinary tract symptoms Category: Medical Plan Plan - Continue Vesicare 10 mg daily for lower urinary tract symptoms. - Consideration of tamsulosin was discussed but deferred due to potential dizziness and recent syncopal episode. - Follow-up in 9 to 10 months with urine check and PVR at the office. Medications: Refilled solifenacin (Vesicare) 10 mg PO DAILY 90 tabs 3RF Patient Instructions: The patient had an opportunity to ask questions regarding treatment plan. The patient expressed understanding and agreement with the above treatment plan. The patient is aware they should contact our office by phone for worsening of their current condition or the appearance of new symptoms. Compliance is encouraged with any medications and followup testing that is ordered. It is a privilege to be allowed the opportunity to participate in the urologic care of your patient. If you have any questions or concerns regarding treatment for the above conditions please do not hesitate to contact me. The office telephone contact is [phone]. This note is constructed in part using voice recognition software. While every effort has been made to ensure accuracy disability attorney errors may have been included. Yours sincerely, Rl Cyr MD Scribe Plan - Not visible on output: Patient was informed and verbally consented to the use of an ambient scribe for clinic note documentation during this visit. Coding Level of Care Code Tele Est Pt Level 3 (71364) Complex EM visit Add On G2211 Diagnoses Urinary frequency R35.0 Personal history of nicotine dependence Z87.891 BPH (benign prostatic hyperplasia) N40.0
--- OUTSIDE RECORDS SUMMARY | 2025-03-30 12:46 | XMS_ITS | Patient Health Record ---
Author Organization [facility] Address [address] [place] [address] Care Team Providers Care Weather Analyst Name Role Phone Sanam Alvarez Primary Care Provider Taj Felipe Jr Unavailable Allergies Allergen (clinical drug ingredient) Drug/Non Drug [...] Problem Status W/U Status Risk Notes Problem [id number] Colon cancer screening (Z12.11) Active confirmed Problem 014825667 Encounter for other preprocedural examination (Z01.818) Active confirmed Plan Of Treatment Future Test Test Name Order Date COLONOSCOPY 06/26/2019 Insurance Providers Payer Name Payer Address Payer Phone Subscriber Number Group Number Insured Name Patient Relationship to Insured Coverage Start Date Coverage End Date [facility] [address] [place] [address] [id number] ERNESTO CARDENAS Self - patient is the insured Medical (General) History Medical History History ICD Code environmental allergies Surgical History Surgery Date(Month/Year) hernia repair
== END 2025-03-30 14:15 | disposition home or self-care (01) ==
LOC: HO.HUSH 11:41
PROVIDERS: PCP Internal Medicine; Visit Provider Urology
DX: R35.0 Frequency of micturition (principal); Z87.891 Personal history of nicotine dependence; N40.0 Benign prostatic hyperplasia without lower urinary tract symptoms
CPT/HCPCS: 98013

== ENCOUNTER 2025-06-15 09:28 | Outpatient (REF) | payer OTHER, SELFPAY ==
--- OUTSIDE RECORDS SUMMARY | 2025-06-15 10:45 | XMS_ITS | Clinical Summary ---
Author Organization [facility] Address [address] [place] [address] Phone Care Team Providers Care Boiler Reliner Name Role Phone Sanam Alvarez MD Primary Care Provider Allergies No known active allergies Medications busPIRone (BUSPAR) 15 MG tablet Take 1 tablet by mouth 2 (two) times a day. Active penicillin V potassium (VEETIDS) 500 MG tablet Take 1 tablet (500 mg total) by mouth 2 (two) times a day. 20 tablet Active Additional Information Patient not taking.Reported on 05/07/2024 Active Problems No known active problems Social History Tobacco Use Types Packs/Day Years Used Date Smoking Tobacco: Every Day Cigarettes Passive Smoke Exposure: Past Smokeless Tobacco: Never Comments:Smokes 1 pack a day Education Answer Date Recorded Are you interested in more education? Not on freda e 01/18/2024 Are you concerned about learning? Not on file 01/18/2024 No 01/18/2024 No 01/18/2024 Digital Access Answer Date Recorded No 01/18/2024 No 01/18/2024 Reliable internet access at home? Not on file 01/18/2024 Device with a working camera? Not on file Sex and Gender Information Value Date Recorded Sex Assigned at Not on file Legal Sex Male 9:58 AM EDT Gender Identity Not on file Sexual Orientation Not on file Last Filed Vital Signs Vital Sign Reading Time Taken Comments Blood Pressure 153/60 05/07/2024 11:34 AM EDT Pulse 73 05/07/2024 11:34 AM EDT Temperature 37.1 C (98.8 F) 05/07/2024 11:34 AM EDT Respiratory Rate 20 05/07/2024 11:34 AM EDT Oxygen Saturation 100% 05/07/2024 11:34 AM EDT Inhaled Oxygen Concentration - - Weight 90.7 kg (200 lb) 05/07/2024 11:34 AM EDT Height 188 cm (6' 2 ) 05/07/2024 11:34 AM EDT Body Mass Index 25.68 05/07/2024 11:34 AM EDT Plan of Treatment Health Maintenance Due Date Last Done Comments Adult Td,Tdap Booster 1969 LIPID PANEL 1969 DEPRESSION SCREENING 1981 SMOKING Hx and SMOKELESS TOB ACCO SCREENING 1982 HEPATITIS C SCREENING 1987 HIV ONE-TIME SCREENING (18-6 5 YEARS) 1987 PNEUMOCOCCAL VACCINES (50+ y ears) (1 of 2 - PCV) 1988 SCREENING FOR DIABETES 2004 COLOGUARD 2014 COLONOSCOPY 2014 COLORECTAL CANCER SCREENING 2014 FIT TEST 2014 FOBT 2014 SIGMOIDOSCOPY 2014 VIRTUAL COLONOSCOPY 2014 ZOSTER VACCINES (1 of 2) 2019 INFLUENZA VACCINE (#1) 2025 COVID-19 VACCINE ( - 2024-2 6 season) 2025 RSV VACCINE (1 - 1-dose 75+ series) 2044 HEPATITIS A VACCINES Aged Out No long er eligible based on patient's age to complete this topic HIB VACCINES Aged Out No longer eligi ble based on patient's age to complete this topic MENINGOCOCCAL VACCINES (ACWY) Aged Out No longer eligible based on patient's age to complete this topic MENINGOCOCCAL VACCINES (B) Aged Out N o longer eligible based on patient's age to complete this topic Medical Devices Not on file Insurance [facility] DIRECT [facility] [employer] DIRECT [facility] [employer] DIRECT [facility] DIRECT [facility] DIRECT Care Teams Boiler Reliner Relationship Specialty Start Date End Date Sanam Alvarez MD [address] [place] [address] [place] [address] PCP - General Internal Medicine 01/18/24 Additional Source Comments The information contained in this document represents components of the legal health record. It is not the complete legal health record.[facility]
--- OUTSIDE RECORDS SUMMARY | 2025-06-15 10:46 | XMS_ITS | Patient Health Record ---
Author Organization [facility] Address [address] [place] [address] Care Team Providers Care Field Application Engineer Name Role Phone Sanam Alvarez Primary Care [...] Problem Status W/U Status Risk Notes Problem [id number] Colon cancer screening (Z12.11) Active confirmed Problem 060953314 Encounter for other preprocedural examination (Z01.818) Active confirmed Plan Of Treatment Future Test Test Name Order Date COLONOSCOPY 06/26/2019 Insurance Providers Payer Name Payer Address Payer Phone Subscriber Number Group Number Insured Name Patient Relationship to Insured Coverage Start Date Coverage End Date [facility] [address] [place] [address] [id number] ERNESTO CARDENAS Self - patient is the insured Medical (General) History Medical History History ICD Code environmental allergies Surgical History Surgery Date(Month/Year) hernia repair
[2025-06-15 11:06] LABS: Alanine Aminotransferase 21 U/L (0-40); Albumin Level 4.5 g/dL (3.5-5.0); Alkaline Phosphatase 44 U/L (39-117); Anion Gap 8 (12-20); Aspartate Amino Transferase 20 U/L (5-37); Blood Urea Nitrogen 13 mg/dL (9-16); Calcium 9.4 mg/dL (8.4-10.2); Carbon Dioxide 28 mmol/L (22-29); Chloride 108 mmol/L (96-108); Estimated Glomerular Filt Rate > 60; Potassium 4.4 mmol/L (3.3-5.1); Sodium 140 mmol/L (135-145); Total Protein 6.8 g/dL (6.5-8.0)
== END 2025-06-15 09:29 | disposition home or self-care (01) ==
LOC: HO.10HDL 09:28
PROVIDERS: Visit Provider Internal Medicine
DX: E78.00 Pure hypercholesterolemia, unspecified (principal); I10 Essential (primary) hypertension; N32.81 Overactive bladder; Z72.0 Tobacco use
CPT/HCPCS: 36415; 80053